=== PATIENT | female | born 1980 | race Caucasian/White ===

== ENCOUNTER → 2019-12-18 16:03 | Outpatient (BNVA) | payer BC, SELFPAY | PROVIDERS: Family Provider Family Medicine; PCP Family Medicine; Visit Provider Family Medicine | DX: R53.82 Chronic fatigue, unspecified (principal); D50.9 Iron deficiency anemia, unspecified | CPT/HCPCS: 80053; 82728; 83540; 84443; 85025 ==

== ENCOUNTER 2020-04-08 08:21 | Emergency (ER) | payer BC, SELFPAY ==
[2020-04-08 08:25] VITALS: BP 137/88; PULSE 88; RESP 20; TEMP 36.9; O2SAT 100; BMI 22.3
--- NOTE | 2020-04-08 08:26 | W.ED.BACK ---
HPI - Back Pain/Injury General: Chief Complaint: Back Pain/Injury Stated Complaint: back pain Time Seen by Provider: 04/08/20 08:24 Source: patient and family Mode of arrival: wheelchair Limitations: no limitations History of Present Illness: HPI Narrative: Patient is a nice 40-year-old female who presents to ED today for evaluation of mid back and neck pain along with upper and lower extremity paresthesias and weakness. Patient tells me she has been noticing upper extremity paresthesias over the past 3 weeks. These seem to be worse when she elevates her extremities (i.e when driving). She tells me she chronically suffers from lower extremity neuropathy but reports over the past few days pain seems to have worsened. She feels her legs are weak and restless. Patient reports she had a similar episode approximately 13 years ago-she was evaluated by neurology for work-up of Guillain Bell?, MS, and other demyelinating disorders. Location: thoracic spine Associated symptoms: Reports difficulty walking; Deny abdominal pain, chills, dysuria, fatigue, fever(s), nausea, syncope, urinary urgency or vomiting Work related injury: No Review of Systems Const: Denies: fever(s), chills, body aches, change in appetite, change in weight, fatigue, malaise or night sweats Eyes: Denies: change in vision, blurry vision, photophobia, floaters or seeing flashes Card: Denies: chest pain, palpitations, irregular heart rhythm, edema, swelling of feet/ankles, lightheadedness, syncope, pre-syncope, dyspnea on exertion, orthopnea or leg pain with exertion Resp: Denies: dyspnea, productive cough, pain on inspiration or chest congestion GI: Denies: abdominal pain, nausea, vomiting, heartburn or diarrhea : Reports: other (no urinary retention ); Denies: flank pain, difficulty voiding, dysuria, urinary frequency, urinary urgency or urinary hesitancy Musc: Reports: neck pain, back pain, extremity pain and muscle weakness; Denies: extremity swelling, joint pain, joint swelling, joint redness or joint warmth Skin/Breast: Denies: rash Neuro: Reports: numbness in extremities, weakness in extremities, sensory changes and difficulty walking; Denies: headache(s), frequent falls, dizziness or Slurred speech present [facility] ED PFSH: Medical History (Updated 04/08/20 @ 10:38 by SAGE Savage) History of hysteroscopy Iron deficiency anemia Surgical History (Updated 12/18/19 @ 15:49 by Cierra Banuelos DO) H/O section H/O tubal ligation History of cholecystectomy Family History Other Chiari malformation Neurofibromatosis Social History Smoking and tobacco status: current every day smoker cigarettes Packs smoked per day: 0.75 Physical Exam Const: COMMON NORMALS: no acute distress, average body habitus, patient oriented x3, no limitations, healthy appearing, alert and well nourished ORIENTATION/CONSCIOUSNESS: Yes oriented to person, Yes oriented to place and Yes oriented to time HENMT: COMMON NORMALS: normocephalic and atraumatic HEAD & SCALP: normocephalic and atraumatic Eye: COMMON NORMALS: Equal, round and reactive pupils present and EOMs intact bilaterally PUPIL: Yes Equal, round and reactive pupils present Neck/C-Spine: CERVICAL SPINE: Yes pain with cervical ROM, Yes Cervical spine tenderness, Yes Paracervical muscle tenderness left and No Paracervical spasm Chest: COMMONS NORMALS: normal inspection of the chest and normal palpation of entire chest wall Resp: COMMON NORMALS: normal respiratory effort and clear to auscultation bilaterally AUSCULTATION: clear to auscultation bilaterally Cardio: COMMON NORMALS: regular rate and regular rhythm RATE: regular rate RHYTHM: regular rhythm : COMMON NORMALS: Yes no CVA tenderness BLADDER/KIDNEY EXAM: Yes no CVA tenderness Back/Pelvis: COMMON NORMALS: no CVA tenderness THORACIC SPINE/UPPER BACK: Yes thoracic spinal tenderness (mid T spine), No paraspinal muscle tenderness and No paraspinal muscle spasm LUMBAR SPINE/LOWER BACK: Yes normal to inspection, No lumbar spinal tenderness and No paraspinal muscle tenderness Extremity: COMMON NORMALS: normal to inspection and full ROM GENERAL: Yes normal exam except as noted Neuro: PETER COMA SCALE: document GCS findings Peter coma scale eye opening: Spontaneous Peter coma scale verbal response: Orientated Peter coma scale motor response: Obey commands [place] coma scale total score: 15 COMMON NORMALS: patient oriented x3, CN's II-XII intact bilaterally, moves all extremities, no focal motor deficits and deep tendon reflexes 2+ bilaterally SENSORIUM/ORIENTATION: Yes alert, Yes oriented to person, Yes oriented to place and Yes oriented to time SENSORY EXAM: Yes other (decreased sensation to bilateral LEs-she states this is fairly chronic ) MOTOR EXAM: 5/5 motor strength present throughout Skin: COMMON NORMALS: no rashes or lesions noted GENERAL SKIN EXAM: no rashes or lesions noted Course Vital Signs: Vital signs: Vital Signs Temperature 98.4 F 04/08/20 08:25 Pulse Rate 57 L 04/08/20 11:12 Respiratory Rate 18 04/08/20 11:12 Blood Pressure 126/79 04/08/20 11:12 Pulse Oximetry 98 04/08/20 11:12 MDM - Back Pain/Injury MDM Narrative: Medical decision making narrative: pts history here is certainly suspicious for some sort of polyneuropathy disorder; her CTs here w/o acute findings; she does have an appointment with Dr. Banuelos on Apr 17 for follow up; I did recommend another neurology consult and information was placed with CM to get her set up with Dr. Sky; I think repeating pts nerve conduction studies might be helpful at this time; she is requesting something to go home with to help with her pain Lab Data: Labs: Lab Results 04/08/20 04/08/20 Range/Units 09:40 09:40 WBC 14.8 H (4.0-10.0) 10^3/ uL RBC 4.93 (4.1-5.3) 10^6/u L Hgb 15.1 (11.5-15.3) g/dL Hct 44.2 (37.0-47.0) % MCV 89.7 (81-99) fL MCH 30.6 (28.0-34.0) pg MCHC 34.2 (30.0-36.0) g/dL RDW 12.3 (12.1-15.1) % Plt Count 252 (130-400) 10^3/c mm MPV 11.1 H (7.4-10.4) fL Neut % (Auto) 73.0 % Lymph % (Auto) 17.8 % [place] % (Auto) 8.4 % Eos % (Auto) 0.3 % Baso % (Auto) 0.2 % Neut # (Auto) 10.81 H (1.8-7.7) 10^3/u L Lymph # (Auto) 2.6 (0.8-4.8) 10^3/u L [place] # (Auto) 1.2 H (0.2-0.9) 10^3/u L Eos # (Auto) 0.1 (0.0-0.8) 10^3/u L Baso # (Auto) 0.0 (0.0-0.1) 10^3/u L Nucleated RBC % (a uto) 0 % Nucleated RBCs # 0.0 /100WBC Sodium 139 (136-145) mmol/L Potassium 3.7 (3.5-5.1) mmol/L Chloride 101 (98-107) mmol/L Carbon Dioxide 25 (22-29) mmol/L Anion Gap 16.7 (5-19) BUN 10 (6-20) mg/dL Creatinine 0.8 (0.5-0.9) mg/dL GFR Calculation 79.9 L (90-130) mL/min Glucose 99 (65-115) mg/dL Calculated Osmolal ity 284 L (285-295) mOsm/k g Calcium 9.9 (8.5-10.5) mg/dL Total Bilirubin 0.4 (0.15-1.2) mg/dL AST 15 (0-32) U/L ALT 10 (0-33) U/L Alkaline Phosphata se 57 (35-105) IU/L C-Reactive Protein 1.3 (0.0-4.9) mg/L Total Protein 7.2 (6.6-8.7) g/dL Albumin 4.6 (3.5-5.2) g/dL Globulin 2.6 (1.3-4.6) g/dL Imaging Data^: CT cervical: Radiologist's impression: [address] [address] [address] Scan Report Signed Patient: Cierra Gilliam Unit #: [id number] : 1980 Age/Sex: 40 / F ADM Date: 04/08/20 Loc: ER Room/Bed: Attending Dr: Ordering Provider/Ordering MD: Ladi Chaudhry Date of Service: 04/08/20 Procedure(s): CT cervical spin wo con* [id number] Accession Number(s): [id number] Report Number: [id number] WS: [id number] CT CERVICAL SPINE TECHNIQUE: Noncontrast CT of the cervical spine with coronal and sagittal reformatted images. CLINICAL INFORMATION: neck pain; paresthesias COMPARISON: None. DLP: 488.[address] scans at [facility] use at least one of these dose optimization techniques: automated exposure control; mA and/or kV adjustment per patient size (includes targeted exams where dose is matched to clinical indication); or iterative reconstruction. FINDINGS: Straightening of the normal cervical lordosis. No acute fractures. No high-grade central canal stenosis. C2-C3: Normal. C3-C4: Normal. C4-C5: Mild right and no significant left foraminal narrowing. Tiny shallow central protrusion. Left foramen is patent. C5-C6: Mild disc osteophytic ridging. Slight effacement of ventral thecal sac. Mild bilateral foraminal narrowing. Mild facet arthropathy. C6-C7: Mild osteophytic ridging with mild right foraminal narrowing. Spinal canal is patent. C7-T1: Mild right bony foraminal narrowing. Spinal canal and foramen are patent. Visualized posterior nasopharynx: Normal. Prevertebral soft tissues: Normal. CT/CT cervical spin wo con* [id number] IMPRESSION: 1. Straightening of the normal cervical lordosis. No high-grade spinal canal or foraminal narrowing. 2. Tiny shallow central protrusion C4-5 with mild central canal stenosis. Mild right foraminal narrowing. 3. Otherwise mild bony foraminal narrowing as described above. Notified SAGE Savage at 04/08/2020 9:21 AM. Dictated By: Smith Parra MD Signed By: Smith Parra MD Signed Date/Time: 04/08/20920 DD/ 3 CT thoracic: Radiologist's impression: [address] [address] [address] Scan Report Signed Patient: Cierra Gilliam Unit #: [id number] : 1980 Age/Sex: 40 / F ADM Date: 04/08/20 Loc: ER Room/Bed: Attending Dr: Ordering Provider/Ordering MD: Ladi Chaudhry Date of Service: 04/08/20 Procedure(s): CT thoracic spin wo con* [id number] Accession Number(s): [id number] Report Number: [id number] WS: [id number] CT THORACIC SPINE TECHNIQUE: Noncontrast CT of the thoracic spine with coronal and sagittal reformatted images. CLINICAL INFORMATION: mid back pain; paresthesias COMPARISON: None. DLP: 1067.[address] scans at [facility] use at least one of these dose optimization techniques: automated exposure control; mA and/or kV adjustment per patient size (includes targeted exams where dose is matched to clinical indication); or iterative reconstruction. FINDINGS: Mild thoracic curve. Disc space heights and vertebral body heights well-preserved. No acute fractures. No acute compression fractures. Mild central canal stenosis T10-T11 and T11-T12 due to facet arthropathy ligament flavum hypertrophy. Partially visualized left proximal foraminal protrusion T12-L1 with moderate left foraminal narrowing. Otherwise mild bony foraminal narrowing at right T4-5, right T6-7, right T7-8, right T8- 9, bilateral T9-T10, bilateral T10-11 right T11-12. Moderate facet arthropathy in the lower thoracic spine. Mild chronic emphysematous change. Subsegmental atelectasis left lower lobe. Calcified hilar nodes. Cholecystectomy clips. CT/CT thoracic spin wo con* [id number] IMPRESSION: 1. Mild thoracic curve. No acute compression fractures. 2. Mild spinal canal narrowing lower thoracic spine T9-T10 and T10-11 3. Small left foraminal protrusion T12-L1 with moderate left foraminal narrowing. 4. Moderate facet arthropathy lower thoracic spine. 5. Otherwise mild bony foraminal narrowing described above. 6. Recommend further evaluation of the above findings with MRI. Notified SAGE Savage at 04/08/2020 9:28 AM. Dictated By: Smith Parra MD Signed By: Smith Parra MD Signed Date/Time: 04/08/20928 DD/ 0 CT lumbar: Radiologist's impression: [facility] [address] [place] [address] CT Scan Report Signed Patient: Cierra Gilliam Unit #: [id number] : 1980 Age/Sex: 40 / F ADM Date: 04/08/20 Loc: ER Room/Bed: Attending Dr: Ordering Provider/Ordering MD: Ladi Chaudhry Date of Service: 04/08/20 Procedure(s): CT lumbar spine wo con* [id number] Accession Number(s): [id number] Report Number: [id number] WS: [id number] CT LUMBAR SPINE TECHNIQUE: Noncontrast CT of the lumbar spine with coronal and sagittal reformatted images. CLINICAL INFORMATION: LE neuropathy; difficulty with ambulation COMPARISON: None. DLP: 1219.[address] scans at [facility] use at least one of these dose optimization techniques: automated exposure control; mA and/or kV adjustment per patient size (includes targeted exams where dose is matched to clinical indication); or iterative reconstruction. FINDINGS: Mild lumbar curve. No acute compression. No high-grade central canal stenosis. T12-L1: Left foraminal protrusion impinges the exiting left T12 nerve root. Severe left foraminal narrowing with moderate facet arthropathy. Mild central canal stenosis. Right foramen is patent. L1-L2: Normal. L2-L3: Normal L3-L4: Mild annular bulging. Mild facet arthropathy. Spinal canal and foramen are patent. L4-L5: Mild annular bulging with osteophytic ridging. Tiny central protrusion. Mild central canal stenosis and impingement traversing L5 nerve roots bilaterally. Mild bilateral foraminal narrowing. Mild facet arthropathy. L5-S1: Small right pericentral protrusion slightly impinges the traversing right S1 nerve root. Spinal canal is patent. Mild bilateral foraminal narrowing. Mild facet arthropathy. Visualized pelvic bony structures: Normal. Paravertebral soft tissues: Normal. CT/CT lumbar spine wo con* [id number] IMPRESSION: 1. Mild lumbar curve. No acute compression. No high-grade central canal stenosis. 2. Left proximal foraminal protrusion T12-L1 with severe left foraminal narrowing 3. Mild central canal stenosis L4-5. 4. Tiny shallow right pericentral protrusion L5-S1 encroaches on the right S1 nerve root. 5. Otherwise mild foraminal narrowing described above. Notified SAGE Savage at 04/08/2020 9:35 AM. Dictated By: Smith Parra MD Signed By: Smith Parra MD Signed Date/Time: 04/08/20934 DD/ 8 Discharge Plan Discharge Patient Disposition: Home Clinical Impression: Polyneuropathy Condition: Stable Prescriptions: New gabapentin 300 mg capsule 300 mg PO TID 30 Days Qty: 90 RF: 0 hydrocodone-acetaminophen 5-325 mg tablet 1 tab PO Q6H PRN (Reason: pain) Qty: 10 RF: 0 Medrol (Julien) 4 mg tablets,dose pack See Rx Instructions .ROUTE .COMPLEX Qty: 21 RF: 0 No Action baclofen 10 mg tablet 10 mg PO TID PRN (Reason: muscle spasm) Qty: 15 RF: 0 naproxen See Rx Instructions .ROUTE .COMPLEX RF: 0 Discharge Orders: Discharge Order (Routine); Ordered 04/08/20 Ordered By: Ladi Chaudhry Referrals: Cierra Banuelos DO [Primary Care Provider] - Activity Restrictions/Additional Instructions: As discussed please follow-up with Dr. Banuelos at your scheduled appointment on April 17. I have placed you information with case management to get you an appointment with Dr. Sky for further evaluation as well. Stand Alone Forms: Work/School Release Discharge Date/Time: 04/08/20 11:13 Coding Level of Care Code ED Site Controller for Chg Fwd Exam Comprehensive
--- NOTE | 2020-04-08 08:43 | CT_ITS ---
WS: [id number] CT LUMBAR SPINE TECHNIQUE: Noncontrast CT of the lumbar spine with coronal and sagittal reformatted images. CLINICAL INFORMATION: LE neuropathy; difficulty with ambulation COMPARISON: None. DLP: 1219.[address] scans at [facility] use at least one of these dose optimization techniques: automat ed exposure control; mA and/or kV adjustment per patient size (includes targeted exams where dose is matched to clinical indication); or iterative reconstruction. FINDINGS: Mild lumbar curve. No acute compression. No high-grade central canal stenosis. T12-L1: Left foraminal protrusion impinges the exiting left T12 nerve root. Severe left foraminal tejal rowing with moderate facet arthropathy. Mild central canal stenosis. Right foramen is patent. L1-L2: Normal. L2-L3: Normal L3-L4: Mild annular bulging. Mild facet arthropathy. Spinal canal and foramen are patent. L4-L5: Mild annular bulging with osteophytic ridging. Tiny central protrusion. Mild central canal mathieu nosis and impingement traversing L5 nerve roots bilaterally. Mild bilateral foraminal narrowing. Mild facet arthropathy. L5-S1: Small right pericentral protrusion slightly impinges the traversing right S1 nerve root. Spina l canal is patent. Mild bilateral foraminal narrowing. Mild facet arthropathy. Visualized pelvic bony structures: Normal. Paravertebral soft tissues: Normal. CT/CT lumbar spine wo con* [id number] IMPRESSION: 1. Mild lumbar curve. No acute compression. No high-grade central canal stenos is. 2. Left proximal foraminal protrusion T12-L1 with severe left foraminal narrow ing 3. Mild central canal stenosis L4-5. 4. Tiny shallow right pericentral protrusion L5-S1 encroaches on the right S1 nerve root. 5. Otherwise mild foraminal narrowing described above. Notified SAGE Savage at 04/08/2020 9:35 AM.
--- NOTE | 2020-04-08 08:43 | CT_ITS ---
WS: [id number] CT CERVICAL SPINE TECHNIQUE: Noncontrast CT of the cervical spine with coronal and sagittal reformatted images. CLINICAL INFORMATION: neck pain; paresthesias COMPARISON: None. DLP: 488.[address] scans at [facility] use at least one of these dose optimization techniques: automat ed exposure control; mA and/or kV adjustment per patient size (includes targeted exams where dose is matched to clinical indication); or iterative reconstruction. FINDINGS: Straightening of the normal cervical lordosis. No acute fractures. No high-grade central ca nal stenosis. C2-C3: Normal. C3-C4: Normal. C4-C5: Mild right and no significant left foraminal narrowing. Tiny shallow central protrusion. Left foramen is patent. C5-C6: Mild disc osteophytic ridging. Slight effacement of ventral thecal sac. Mild bilateral foramin al narrowing. Mild facet arthropathy. C6-C7: Mild osteophytic ridging with mild right foraminal narrowing. Spinal canal is patent. C7-T1: Mild right bony foraminal narrowing. Spinal canal and foramen are patent. Visualized posterior nasopharynx: Normal. Prevertebral soft tissues: Normal. CT/CT cervical spin wo con* [id number] IMPRESSION: 1. Straightening of the normal cervical lordosis. No high-grade spinal canal o r foraminal narrowing. 2. Tiny shallow central protrusion C4-5 with mild central canal stenosis. Mild right foraminal narrowing. 3. Otherwise mild bony foraminal narrowing as described above. Notified SAGE Savage at 04/08/2020 9:21 AM.
--- NOTE | 2020-04-08 08:43 | CT_ITS ---
WS: [id number] CT THORACIC SPINE TECHNIQUE: Noncontrast CT of the thoracic spine with coronal and sagittal reformatted images. CLINICAL INFORMATION: mid back pain; paresthesias COMPARISON: None. DLP: 1067.[address] scans at [facility] use at least one of these dose optimization techniques: automat ed exposure control; mA and/or kV adjustment per patient size (includes targeted exams where dose is matched to clinical indication); or iterative reconstruction. FINDINGS: Mild thoracic curve. Disc space heights and vertebral body heights well-preserved. No acute fractures . No acute compression fractures. Mild central canal stenosis T10-T11 and T11-T12 due to facet arthropathy ligament flavum hypertrophy. Partially visualized left proximal foraminal protrusion T12-L1 with moderate left foraminal narrowing . Otherwise mild bony foraminal narrowing at right T4-5, right T6-7, right T7-8, right T8-9, bilatera l T9-T10, bilateral T10-11 right T11-12. Moderate facet arthropathy in the lower thoracic spine. Mild chronic emphysematous change. Subsegmental atelectasis left lower lobe. Calcified hilar nodes. C holecystectomy clips. CT/CT thoracic spin wo con* [id number] IMPRESSION: 1. Mild thoracic curve. No acute compression fractures. 2. Mild spinal canal narrowing lower thoracic spine T9-T10 and T10-11 3. Small left foraminal protrusion T12-L1 with moderate left foraminal narrowi ng. 4. Moderate facet arthropathy lower thoracic spine. 5. Otherwise mild bony foraminal narrowing described above. 6. Recommend further evaluation of the above findings with MRI. Notified SAGE Savage at 04/08/2020 9:28 AM.
[2020-04-08 09:50] LABS: Basophils % 0.2 %; Eosinophils # 0.1 10^3/uL (0.0-0.8); Eosinophils % 0.3 %; Hematocrit 44.2 % (37.0-47.0); Hemoglobin 15.1 g/dL (11.5-15.3); Lymphocytes # 2.6 10^3/uL (0.8-4.8); Lymphocytes % 17.8 %; Mean Corpuscular HGB Conc 34.2 g/dL (30.0-36.0); Mean Corpuscular Hemoglobin 30.6 pg (28.0-34.0); Mean Corpuscular Volume 89.7 fL (81-99); Mean Platelet Volume 11.1 fL (7.4-10.4); Monocytes # 1.2 10^3/uL (0.2-0.9); Monocytes % 8.4 %; Neutrophils # 10.81 10^3/uL (1.8-7.7); Nucleated Red Blood Cells % 0 %; Platelet Count 252 10^3/cmm (130-400); Red Blood Count 4.93 10^6/uL (4.1-5.3); Red Cell Distribution Width 12.3 % (12.1-15.1); White Blood Count 14.8 10^3/uL (4.0-10.0)
[2020-04-08 09:51] VITALS: BP 127/80; PULSE 53; RESP 18; O2SAT 99
[2020-04-08 10:14] LABS: Alanine Aminotransferase 10 U/L (0-33); Albumin Level 4.6 g/dL (3.5-5.2); Alkaline Phosphatase 57 IU/L (35-105); Anion Gap 16.7 (5-19); Aspartate Amino Transferase 15 U/L (0-32); Blood Urea Nitrogen 10 mg/dL (6-20); Calcium 9.9 mg/dL (8.5-10.5); Carbon Dioxide 25 mmol/L (22-29); Chloride 101 mmol/L (98-107); Globulin 2.6 g/dL (1.3-4.6); Glomerular Filtration Rate 79.9 mL/min (90-130); Glucose 99 mg/dL (65-115); Osmolality Calculated 284 mOsm/kg (285-295); Potassium 3.7 mmol/L (3.5-5.1); Sodium 139 mmol/L (136-145); Total Bilirubin 0.4 mg/dL (0.15-1.2); Total Protein 7.2 g/dL (6.6-8.7)
[2020-04-08 10:26] VITALS: RESP 18
[2020-04-08] MEDS: orphenadrine 30 mg/mL Inj 2 mL 60 MG IM (10:26)
[2020-04-08] MEDS: morphine 4 mg/mL SDV 1 mL IVP (10:26)
[2020-04-08] MEDS: ondansetron 2 mg/ML SDV 2 mL 4 MG IVP (10:26)
[2020-04-08 10:30] LABS: C Reactive Protein 1.3 mg/L (0.0-4.9)
[2020-04-08 11:12] VITALS: BP 126/79; PULSE 57; RESP 18; O2SAT 98
--- NOTE | 2020-04-09 08:57 | DCPLANNER ---
manager general was asked to schedule a follow up appointment for patient with Dr. Sky. manager general called the office of Dr. Sky, gave clinic patients information. manager general was told that patients information would be printed and reviewed. Clinic will call patient with appointment information.
== END 2020-04-08 11:13 | disposition home or self-care (01) ==
PROVIDERS: Emergency Provider Physician Assistant; Family Provider Family Medicine; PCP Family Medicine
DX: G62.9 Polyneuropathy, unspecified (principal); F17.210 Nicotine dependence, cigarettes, uncomplicated
CPT/HCPCS: 12345; 72125; 72128; 72131; 80053; 85025; 86140; 96372; 96374; 96375; 99282; 99283; J2270; J2360; J2405

== ENCOUNTER → 2020-04-15 07:55 | Outpatient (BNVA) | payer BC, SELFPAY | PROVIDERS: Family Provider Family Medicine; PCP Family Medicine; Visit Provider Licensed Practical Nurse | DX: M51.34 Other intervertebral disc degeneration, thoracic region (principal); F17.210 Nicotine dependence, cigarettes, uncomplicated; M51.26 Other intervertebral disc displacement, lumbar region; G62.9 Polyneuropathy, unspecified | CPT/HCPCS: 99214 ==

== ENCOUNTER 2020-04-23 12:11 | Outpatient (CLI) | payer BC, SELFPAY ==
--- NOTE | 2020-04-23 12:21 | MR_ITS ---
WS: [id number] MRI CERVICAL SPINE HISTORY: CERVICAL DISC DISORDER COMPARISON: CT cervical spine 04/08/2020 Normal cervical alignment with no compression fracture or significant disc space narrowing. Mild inferior displacement of cerebellar tonsils by 5 mm. Craniocervical junction, C1 and C2 relationship, odontoid process and soft tissues are normal. C2-C3: Normal. C3-C4: Normal. C4-C5: Mild disc bulging. C5-C6: Very shallow central protrusion. No stenosis. C6-C7: Shallow central protrusion with no stenosis. C7-T1: Normal. Paraspinal soft tissue are normal. MR/MR cervical spin wo con* [id number] IMPRESSION: 1. Shallow central disc protrusions at C5-6 and C6-7. No stenosis. 2. Mild ectopia cerebellar tonsils.
--- NOTE | 2020-04-23 12:21 | MR_ITS ---
WS: [id number] MRI THORACIC SPINE without contrast HISTORY: THORACIC REGION DEGENERATION OF INTERVERTEBRAL DISC COMPARISON: CT 04/08/2020 TECHNIQUE: Multiplanar sequences are performed in sagittal and axial planes. Normal posterior thoracic alignment. No marrow edema or fracture. Signal within the cord is normal. N o cord atrophy or enlargement. T1-2: Normal. T2-3: Normal. T3-4: Normal. T4-5: Mild bilateral facet joint arthropathy and mild foraminal narrowing. T5-6: Mild facet joint arthropathy. T6-7: Normal. T7-8: Normal. T8-9: Mild bilateral facet joint arthritis. Mild RIGHT foraminal stenosis. T9-10: Facet joint arthritis. Mild bilateral foraminal stenosis. T10-11: Facet joint arthritis and ligamentum flavum hypertrophy encroaching into the posterior later al thecal sac. Very mild central and foraminal stenosis. T11-12: Moderate asymmetric facet joint arthritis, greatest on the RIGHT. Encroachment into the RIGH T lateral thecal sac. Very minimal narrowing of the central canal and foramen. T12-L1: Mild LEFT foraminal narrowing due to facet disease and a small LEFT paracentral disc osteophy te complex. Moderate LEFT subarticular recess stenosis. MR/MR thoracic spin wo con* [id number] IMPRESSION: 1. Moderate LEFT subarticular recess stenosis at T12-L1 due to disc osteophyte complex. 2. Multilevel mild facet joint arthritis and foraminal narrowing otherwise. No severe high-grade stenosis. 3. Normal signal in the cord.
--- NOTE | 2020-04-23 12:22 | MR_ITS ---
WS: [id number] MRI BRAIN WITH AND WITHOUT CONTRAST HISTORY: GAIT INSTABILITY, HEADACHE COMPARISON: 08/27/2006 TECHNIQUE: Multiplanar imaging performed through the brain with Prohance 14 ml's IV. No acute infarcts are seen. Duarte-white matter differentiation is well preserved. There are a few scat tered T2 and FLAIR signal hyperintensities which are nonspecific. No prior infarct. No susceptibility artifacts or prior lacunar infarcts. Ventricles and extra-axial spaces are normal. Clivus and pituitary gland are normal. Inferior displacement of the cerebellar tonsils by 6 mm. Consistent with a mild Chiari malformation. Inferior descent of the cerebellar tonsils is not quite as significant on today's examination as 2006 . Postcontrast images are negative for masses or vascular malformations. Dural venous sinuses are normal. Paranasal sinuses: Well aerated with no significant disease. Mastoid air cells: Normal. Calvarium and scalp: Normal. MR/MR head wo/w con [id number] IMPRESSION: 1. No acute infarct. 2. No hydrocephalus. 3. Mild Chiari I malformation.
--- NOTE | 2020-04-23 13:17 | XR_ITS ---
WS: [id number] LATERAL LUMBAR SPINE: 3 view. Lateral radiographs are performed in upright neutral, flexion and extension to the patient's toleranc e. HISTORY: low back pain COMPARISON: None available. Mild straightening of the normal lumbar lordosis. During flexion and extension there is no instabilit y. No fractures. Prior cholecystectomy. XR/XR lumbar spine f/e only [id number] IMPRESSION: No lumbar spine instability.
--- NOTE | 2020-04-23 13:17 | XR_ITS ---
WS: [id number] LATERAL CERVICAL SPINE: 3 view. Lateral radiographs are performed in upright neutral, flexion and extension to the patient's toleranc e. HISTORY: Neck pain COMPARISON: None available. Straightening of the normal cervical lordosis with slight reversal. Disc spaces and vertebral body he ights are normal. During flexion C4 anterolisthesis by less than 2 mm. During extension less than 2 m m retrolisthesis of C4. XR/XR cervical spine fl/ex [id number] IMPRESSION: There is very minimal instability of C4 during flexion and extension.
== END 2020-04-23 12:12 | disposition home or self-care (01) ==
LOC: RADSHAW 12:15 → RADWPI 13:34
PROVIDERS: Family Provider Family Medicine; PCP Family Medicine; Visit Provider Licensed Practical Nurse
DX: R26.89 Other abnormalities of gait and mobility (principal); R51 Headache; M53.2X2 Spinal instabilities, cervical region; G93.5 Compression of brain; M51.34 Other intervertebral disc degeneration, thoracic region; M48.05 Spinal stenosis, thoracolumbar region; M50.90 Cervical disc disorder, unspecified, unspecified cervical region; M50.223 Other cervical disc displacement at C6-C7 level
CPT/HCPCS: 70553; 72040; 72120; 72141; 72146; A9579

== ENCOUNTER 2020-05-01 07:47 | Outpatient (CLI) | payer BC, SELFPAY ==
--- NOTE | 2020-05-01 09:30 | MR_ITS ---
WS: [id number] MRI LUMBAR SPINE NONCONTRAST HISTORY: M51.26 Other intervertebral disc displacement, lumbar region COMPARISON: Lumbar spine CT 04/08/2020. TECHNIQUE: Sagittal and axial multisequence imaging is submitted. Mild straightening of the normal lumbar alignment. Disc spaces are preserved. No marrow edema or fracture. Conus terminates normally at L1. T12-L1: Moderate sized LEFT paracentral and subarticular recess disc protrusion with narrowing of the LEFT foramen. The T12 nerve root is being impinged upon. At least moderate LEFT foraminal stenosis. L1-L2: Normal. L2-L3: Normal. L3-L4: Mild facet and ligamentum flavum arthritis. Very mild annular disc bulging. Mild effacement of fat. There is moderate bilateral foraminal stenosis, RIGHT greater than LEFT. L4-L5: Diffuse annular disc bulging with facet and ligamentum flavum hypertrophy. Encroachment into t he subarticular recesses and foramen. RIGHT foraminal disc protrusion with annular fissure. Moderate bilateral foraminal stenosis. L5-S1: Mild annular disc bulging and facet arthritis. Moderate bilateral foraminal stenosis. MR/MR lumbar spine wo con* [id number] IMPRESSION: 1. Moderate LEFT T12-L1 foraminal disc protrusion with encroachment upon the T 12 nerve root. Similar to the CT. 2. Moderate bilateral foraminal stenosis from L3-4 through L5-S1 due to combin ation of facet disease and disc disease. 3. Small RIGHT foraminal disc protrusion with annular fissure at L4-5 contribu ting to the moderate foraminal stenosis.
== END 2020-05-01 07:48 | disposition home or self-care (01) ==
LOC: RADSHAW 07:51
PROVIDERS: PCP Family Medicine; Visit Provider Licensed Practical Nurse
DX: M51.26 Other intervertebral disc displacement, lumbar region (principal); M48.061 Spinal stenosis, lumbar region without neurogenic claudication; M51.36 Other intervertebral disc degeneration, lumbar region
CPT/HCPCS: 72148

== ENCOUNTER → 2020-05-02 14:53 | Outpatient (BNVA) | payer BC, SELFPAY | PROVIDERS: PCP Family Medicine; Visit Provider Specialist | DX: G62.9 Polyneuropathy, unspecified (principal); F44.9 Dissociative and conversion disorder, unspecified; G57.30 Lesion of lateral popliteal nerve, unspecified lower limb; R26.89 Other abnormalities of gait and mobility; F17.210 Nicotine dependence, cigarettes, uncomplicated | CPT/HCPCS: 95909; 99215 ==

== ENCOUNTER → 2020-05-05 14:59 | Outpatient (BNVA) | payer BC, SELFPAY | PROVIDERS: PCP Family Medicine; Visit Provider Licensed Practical Nurse | DX: R26.81 Unsteadiness on feet (principal); M50.90 Cervical disc disorder, unspecified, unspecified cervical region; M51.34 Other intervertebral disc degeneration, thoracic region; M51.26 Other intervertebral disc displacement, lumbar region; R26.89 Other abnormalities of gait and mobility; F44.9 Dissociative and conversion disorder, unspecified; G62.9 Polyneuropathy, unspecified; F17.210 Nicotine dependence, cigarettes, uncomplicated | CPT/HCPCS: 99213 ==

== ENCOUNTER → 2020-05-15 13:56 | Outpatient (BNVA) | payer BC, SELFPAY | PROVIDERS: PCP Family Medicine; Visit Provider Licensed Practical Nurse | DX: M51.26 Other intervertebral disc displacement, lumbar region (principal); M51.34 Other intervertebral disc degeneration, thoracic region; M50.90 Cervical disc disorder, unspecified, unspecified cervical region; R26.81 Unsteadiness on feet; F17.210 Nicotine dependence, cigarettes, uncomplicated | CPT/HCPCS: 99214 ==

== ENCOUNTER 2020-09-01 17:42 | Emergency (ER) | payer BC, SELFPAY ==
[2020-09-01 17:44] VITALS: BP 156/103; PULSE 62; RESP 18; TEMP 36.3; O2SAT 100; BMI 22.4
--- NOTE | 2020-09-01 18:07 | W.ED.HA ---
HPI - Headache General: Chief Complaint: Headache Stated Complaint: MIGRAINE X 3 DAYS Time Seen by Provider: 09/01/20 17:47 Source: patient Mode of arrival: ambulatory Limitations: no limitations History of Present Illness: HPI Narrative: 40-year-old female patient presents to the emergency department with migraine headache x3 days. She reports has maxed out dose of Maxalt past 2 days; continues to take Topamax as recommended by her neurologist. She reports migraine she is experiencing today is similar to that in the past with exception has lasted longer. She reports her pain is global, increased intensity, has experienced 1 episode of vomiting, today and continued nausea. She reports decreased intake of fluids, decreased appetite, denies fever chills or body aches. States known triggers are weather changes and certain foods that contain MSG. She states has neurologist at [facility] who is working her up for possible MS - previous evaluation by DR Sky with diagnosis of conversion disorder. Reports diagnosed with MHA during childhood. MD elicited complaint: headache and migraine Pertinent past history: migraines Onset (ago): day(s) (2-3) Onset description: gradually Location: generalized Severity: moderate Quality & Timing: aching, throbbing, dull and similar to previous headaches Exacerbating factors: light and noise Relieving factors: rest, dark room, sleep and massage Context: occurred at rest Associated symptoms: Reports nausea, sound sensitivity and vomiting (x1); Deny chest pain, diaphoresis, fever(s), lightheadedness, malaise or rash Treatments prior to arrival: prescription analgesic and migraine medication Review of Systems General: Reports: 10 or more systems reviewed and unremarkable except in HPI and below Const: Denies: fever(s), chills, body aches, fatigue, malaise or diaphoresis Eyes: Reports: photophobia; Denies: change in vision, blurry vision, blind spots, eye discomfort, eye discharge, eye redness or seeing flashes ENMT: Denies: throat pain, dental pain or disequilibrium Card: Denies: chest pain, palpitations, irregular heart rhythm, lightheadedness, dyspnea on exertion or orthopnea Resp: Denies: dyspnea, productive cough, non-productive cough, wheezing or chest congestion GI: Reports: nausea and vomiting (x1); Denies: abdominal pain, diarrhea, constipation, fecal incontinence or change in bowel habits : Denies: difficulty voiding or dysuria Musc: Reports: neck pain (chronic - not changed - not chnged from baseline); Denies: back pain, muscle cramps or muscle weakness Skin/Breast: Denies: rash or pruritus Neuro: Denies: headache(s), weakness in extremities or behavioral changes Psych: Denies: anxiety, depression or irritability Fernie/Lymph: Denies: easy bruising PFSH ED PFSH: Medical History (Updated 09/01/20 @ 18:36 by RINA Neumann) Cervical disc disease Conversion disorder Displacement of lumbar intervertebral disc Functional gait abnormality Gait instability History of hysteroscopy Iron deficiency anemia Peroneal neuropathy Thoracic degenerative disc disease Surgical History H/O section H/O tubal ligation History of cholecystectomy Family History Other Chiari malformation Neurofibromatosis Social History Smoking and tobacco status: current every day smoker cigarettes Packs smoked per day: 0.75 Alcohol intake: never Household members: spouse and children Marital status: Current occupational status: employed Current occupation: currently [employer] History of recent travel: No Physical Exam Const: COMMON NORMALS: no acute distress, patient oriented x3, healthy appearing, alert and well nourished EXAM LIMITATIONS: no altered mental status, no behavioral limitations and no language barrier GENERAL APPEARANCE: cooperative, comfortable, well kempt, well developed and well hydrated; not anxious, not combative and not ill appearing NUTRITIONAL APPEARANCE: thin ORIENTATION/CONSCIOUSNESS: Yes awake, Yes oriented to person, Yes oriented to place and Yes oriented to time; not confused and not patient obtunded HENMT: COMMON NORMALS: normocephalic, atraumatic, EAC's normal, TM's normal bilaterally, Normal external nose present and moist oral mucous membranes HEAD & SCALP: normal to inspection, normocephalic, atraumatic and scalp tenderness (reports scalp massage helps pain upon exam) FACE & SINUS: normal facial exam and face symmetric; no sinus tenderness, no Flattened naso-labial fold present, no erythema and no edema NOSE: Normal external nose present and Normal nares present EXTERNAL AUDITORY CANAL: EAC's normal TYMPANIC MEMBRANE: TM's normal bilaterally MOUTH: Normal oral and palatal mucosa present, lip normal and tongue normal THROAT: posterior oropharynx normal and uvula midline Eye: COMMON NORMALS: Equal, round and reactive pupils present and EOMs intact bilaterally GENERAL EYE: appearance normal, both eyes and all related structures ALIGNMENT: Yes alignment normal EYELID: eyelids normal SCLERA: sclerae normal PUPIL: Yes Equal, round and reactive pupils present Neck/C-Spine: COMMON NORMALS: full ROM, no lymphadenopathy and supple GENERAL: Yes normal visual inspection, Yes trachea midline, No lymphadenopathy and No tender CERVICAL SPINE: Yes cervical ROM normal, No pain with cervical ROM, No Cervical spine tenderness, No Paracervical muscle tenderness and No Trapezius muscle tenderness Lymph: LYMPHATIC: no lymphadenopathy noted Chest: COMMONS NORMALS: normal inspection of the chest and normal palpation of entire chest wall Resp: COMMON NORMALS: normal respiratory effort, No retractions, No use of accessory muscles and clear to auscultation bilaterally EFFORT & INSPECTION: Yes able to speak in complete sentences, No labored, No retractions and No audible wheezes AUSCULTATION: clear to auscultation bilaterally Cardio: COMMON NORMALS: regular rate, regular rhythm, S1 normal heart sound present, S2 normal heart sound present and Peripheral pulses 2+ throughout RATE: regular rate RHYTHM: regular rhythm HEART SOUNDS: S1 normal heart sound present and S2 normal heart sound present PERIPHERAL PULSES: Peripheral pulses 2+ throughout GI: COMMON NORMALS: Normal to inspection, nondistended, normoactive bowel sounds present, Soft to palpation and non-tender INSPECTION: Yes normal to inspection and No central obesity PALPATION: Yes Soft to palpation, No Firmness to palpation present (GI) and No Tenderness to palpation present (GI) : COMMON NORMALS: Yes no CVA tenderness BLADDER/KIDNEY EXAM: Yes no CVA tenderness Back/Pelvis: COMMON NORMALS: no CVA tenderness, thoracic and lumbar spine normal to inspection, no thoracic nor lumbar tenderness and thoraco-lumbar ROM normal Extremity: COMMON NORMALS: normal to inspection, full ROM, capillary refill normal and no pedal edema GENERAL: Yes normal exam except as noted Neuro: PETER COMA SCALE: document GCS findings [place] coma scale eye opening: Spontaneous [place] coma scale verbal response: Orientated Peter coma scale motor response: Obey commands [place] coma scale total score: 15 COMMON NORMALS: patient oriented x3 and no focal motor deficits SENSORIUM/ORIENTATION: Yes alert, Yes oriented to person, Yes oriented to place and Yes oriented to time SPEECH: speech normal GAIT: Yes Normal gait present MOTOR EXAM: 5/5 motor strength present throughout Psych: COMMON NORMALS: mental status grossly normal, Normal thought process present, cooperative, normal affect, speech normal, activity/motor behavior normal, denies hallucinations, denies homicidal ideation and denies suicidal ideation APPEARANCE: Yes grossly normal and Yes well kempt ATTITUDE: Yes calm ACTIVITY/MOTOR BEHAVIOR: Yes appropriate eye contact SPEECH: Yes normal speech THOUGHT PROCESS: Normal thought process present MEMORY/COGNITION: Yes memory grossly intact INSIGHT: Good insight present (Psych) JUDGEMENT: Good judgement present (Psych) Skin: COMMON NORMALS: no rashes or lesions noted and turgor normal GENERAL SKIN EXAM: no rashes or lesions noted and turgor normal Course Vital Signs: Vital signs: Vital Signs Temperature 97.3 F L 09/01/20 17:44 Pulse Rate 62 09/01/20 17:44 Respiratory Rate 18 09/01/20 17:44 Blood Pressure 156/103 09/01/20 17:44 Pulse Oximetry 100 09/01/20 17:44 MDM - Headache MDM Narrative: Medical decision making narrative: 40-year-old female patient presents to the emergency department with migraine headache x3 days. She experienced 1 episode of vomiting prior to arrival to the ED. Normal saline along with migraine headache cocktail that included Toradol, Reglan, dexamethasone, and Benadryl administered IV. Migraine headache improved and she was ready to go home. Blood pressure at time of discharge 124/64. Oxygen saturation 100%. She requested to go home and sleep. She states has appointment with her primary care provider on Tuesday. Advised to return to the emergency department if she develops worst headache of her life or return of migraine that is intractable. She remained neurologically at baseline. [place] SAH score - 0. Differential Diagnosis: Differential diagnosis headache: Likely migraine, tension headache, subarachnoid hemorrhage, headache, meningitis and sinusitis Discharge Plan Discharge Patient Disposition: Home Clinical Impression: Migraine headache Qualifiers: Migraine type: with aura Status migrainosus presence: with status migrainosus Intractability: intractable Qualified Code(s): G43.111 - Migraine with aura, intractable, with status migrainosus Condition: Stable Prescriptions: No Action baclofen 10 mg tablet 10 mg PO TID PRN (Reason: muscle spasm) Qty: 15 RF: 0 gabapentin 300 mg capsule 300 mg PO BEDTIME RF: 0 rizatriptan 10 mg tablet 10 mg PO PRN RF: 0 topiramate 25 mg tablet 25 mg PO BID@ RF: 0 Tylenol Extra Strength 500 mg Tablet 1,000 mg PO PRN RF: 0 oxybutynin chloride 5 mg tablet 5 mg PO TID PRN (Reason: Bladder Spasms) RF: 0 Excedrin Migraine 250-250-65 mg Tablet 2 tab PO PRN RF: 0 naproxen 500 mg Tablet 500 - 1,000 mg PO PRN RF: 0 Discharge Orders: Discharge ED (Routine); Ordered 09/01/20 Ordered By: Helena East Referrals: Estephania Valladares DO [Primary Care Provider] - Discharge Diet: Usual diet Discharge Activity: Limit activity as instructed Patient Instructions: Migraine Headache (ED) Activity Restrictions/Additional Instructions: rest at home today and tomorrow limit activity until better Continue follow up with neurologist at [facility] return to the ED for the worst headache of your life or if concerning symptoms occur Coding Level of Care Code ED Accounts Receivable Specialist for Kathi Fwd Exam Comprehensive
[2020-09-01] MEDS: metoclopramide 5 mg/mL SDV 2 mL 10 MG IVP (18:27)
[2020-09-01] MEDS: diphenhydrAMINE 50 mg/mL SDV 1mL 25 MG IVP (18:27)
[2020-09-01] MEDS: ketorolac 30 mg/mL INJ IVP (18:27)
[2020-09-01] MEDS: dexamethasone 4 mg/mL INJ 8 MG IVP (18:27)
[2020-09-01] MEDS: sodium chloride 0.9% 500 ML 999 ML IV (18:27)
== END 2020-09-01 19:35 | disposition home or self-care (01) ==
PROVIDERS: Emergency Provider Nurse Practitioner Family; PCP Family Medicine
DX: G43.111 Migraine with aura, intractable, with status migrainosus (principal); F17.210 Nicotine dependence, cigarettes, uncomplicated
CPT/HCPCS: 12345; 96374; 96375; 99282; 99283; J1100; J1200; J1885; J2765; J7040

== ENCOUNTER 2021-12-16 12:34 | Emergency (ER) | payer BC, SELFPAY ==
[2021-12-16 12:37] VITALS: BP 150/101; PULSE 71; RESP 16; TEMP 36.6; O2SAT 100
--- NOTE | 2021-12-16 13:41 | CT_ITS ---
WS: [id number] CT HEAD TECHNIQUE: Noncontrast CT of the head obtained from the skullbase to the vertex. CLINICAL INFORMATION: headache, reported hx brain mass COMPARISON: MRI April 23, 2020 DLP: 776.[address] scans at [facility] use at least one of these dose optimization techniques: automated e xposure control; mA and/or kV adjustment per patient size (includes targeted exams where dose is matc hed to clinical indication); or iterative reconstruction. FINDINGS: No evidence of intracranial hemorrhage or mass effect. Ventricular system and basal cisterns are rowland nt. No extra-axial fluid collections. No evidence of mass or mass effect. Normal garcia-white different iation. Stable Chiari I malformation. Normal 4th ventricle. Dystrophic calcification along the falx. Mastoid air cells are well aerated. Moderate mucosal thickening RIGHT maxillary sinus. Normal soft ti ssues. CT/CT head wo con* [id number] IMPRESSION: 1. No evidence of intracranial hemorrhage or mass effect. 2. Normal garcia-white differentiation. 3. Stable Chiari I malformation. 4. No acute intracranial findings.
--- NOTE | 2021-12-16 14:39 | ED_ITS ---
HPI - Headache General: Chief Complaint: Headache Stated Complaint: body aches, headache Time Seen by Provider: 12/16/21 14:34 Source: patient Mode of arrival: ambulatory Limitations: no limitations History of Present Illness: 41-year-old female presents emergency room complaining of headache with nausea and vomiting no vision changes. 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 She is unable to tell me exactly where it is. Review of the chart like she does have a tumor she has had Chiari malformation. She tried some [id number] medications at home for the headache with no relief. MD elicited complaint: headache Onset (ago): day(s) Onset description: gradually Location: frontal and occipital Quality & Timing: throbbing Exacerbating factors: light and noise Relieving factors: rest and dark room Associated symptoms: Reports malaise, nausea, photophobia and vomiting; Deny chest pain, confusion, cough, diaphoresis, eye pain, eye redness, fever(s), lightheadedness, loss of vision, neck stiffness, numbness, paresthesias, pre- syncope, rash, seizures, short of breath, sound sensitivity, syncope or weakness Treatments prior to arrival: acetaminophen and ibuprofen Review of Systems Const: Reports: malaise; Denies: fever(s) or diaphoresis ENMT: Denies: throat pain, ear or mastoid pain, nasal discharge or nasal congestion Card: Denies: chest pain, lightheadedness, syncope or pre-syncope Resp: Denies: dyspnea, productive cough or non-productive cough GI: Reports: nausea and vomiting : Denies: flank pain, difficulty voiding, dysuria, urinary frequency or urinary urgency Skin/Breast: Denies: rash Neuro: Denies: confusion PFSH ED PFSH: Medical History Cervical disc disease Conversion disorder Displacement of lumbar intervertebral disc Functional gait abnormality Gait instability Iron deficiency anemia Peroneal neuropathy Thoracic degenerative disc disease Surgical History H/O section H/O tubal ligation History of cholecystectomy History of hysteroscopy Family History Other Chiari malformation Neurofibromatosis Social History Smoking and tobacco status: current every day smoker cigarettes Packs smoked per day: 0.75 Alcohol intake: never Household members: spouse and children Marital status: Current occupational status: employed Current occupation: currently [employer] History of recent travel: No Physical Exam Const: COMMON NORMALS: no acute distress GENERAL APPEARANCE: cooperative and comfortable ORIENTATION/CONSCIOUSNESS: Yes awake, Yes oriented to person, Yes oriented to place and Yes oriented to time HENMT: COMMON NORMALS: normocephalic, atraumatic, hearing grossly normal bilaterally, external ears normal, EAC's normal, TM's normal bilaterally, Normal nasal mucous membranes and turbinates present, moist oral mucous membranes and oropharynx normal HEAD & SCALP: normocephalic and atraumatic NOSE: Normal nasal mucous membranes and turbinates present EXTERNAL EAR: Yes external ears normal EXTERNAL AUDITORY CANAL: EAC's normal TYMPANIC MEMBRANE: TM's nor mal bilaterally Eye: COMMON NORMALS: Equal, round and reactive pupils present, EOMs intact bilaterally, conjunctivae normal and no scleral icterus CONJUNCTIVA: Yes conjunctivae normal PUPIL: Yes Equal, round and reactive pupils present DIRECT OPHTHALMOSCOPY: Yes photophobia Neck/C-Spine: COMMON NORMALS: full ROM, no lymphadenopathy, supple and no JVD Resp: COMMON NORMALS: normal respiratory effort, No retractions, No use of accessory muscles and clear to auscultation bilaterally AUSCULTATION: clear to auscultation bilaterally Cardio: COMMON NORMALS: no JVD, regular rate, regular rhythm and No murmurs present (Cardio) RATE: regular rate RHYTHM: regular rhythm GI: COMMON NORMALS: Soft to palpation and No hepatosplenomegaly present AUSCULTATION: Yes normoactive bowel sounds PALPATION: Yes Soft to palpation, No Tenderness to palpation present (GI), No Guarding due to palpation present (GI) and Yes No hepatosplenomegaly present Extremity: COMMON NORMALS: normal to inspection, capillary refill normal, no clubbing, cyanosis or edema, no calf tenderness and no pedal edema Neuro: SENSORIUM/ORIENTATION: Yes oriented to person, Yes oriented to place and Yes oriented to time Skin: COMMON NORMALS: no rashes or lesions noted GENERAL SKIN EXAM: no rashes or lesions noted Course Vital Signs: Vital signs: Vital Signs Temperature 97.8 F 12/16/21 12:37 Pulse Rate 101 H 12/16/21 16:41 Respiratory Rate 16 12/16/21 12:37 Blood Pressure 146/71 12/16/21 16:41 Pulse Oximetry 97 12/16/21 16:41 MDM - Headache Medical Decision Making Improved with medications given will discharge patient home can use Phenergan as prescribed here as needed if has recurrent headache with nausea or vomiting along with other analgesics. Recommend follow-up with primary care return if has further problems. Medical Records I reviewed the patient's medical records. Lab Data I reviewed the patient's lab results. : 12/16/21 15:15 12/16/21 15:[address] 12/16/21 13:41 IMPRESSION: 1. No evidence of intracranial hemorrhage or mass effect. 2. Normal garcia-white differentiation. 3. Stable Chiari I malformation. 4. No acute intracranial findings. Laboratory Results WBC 10.6 10^3/uL (4.0-10.0) H 12/16/21 15:15 RBC 5.11 10^6/uL (4.1-5.3) 12/16/21 15:15 Hgb 15.6 g/dL (11.5-15.3) H 12/16/21 15:15 Hct 45.6 % (37.0-47.0) 12/16/21 15:15 MCV 89.2 fl (81-99) 12/16/21 15:15 MCH 30.5 pg (28.0-34.0) 12/16/21 15:15 MCHC 34.2 g/dL (30.0-36.0) 12/16/21 15:15 RDW 12.7 % (12.1-15.1) 12/16/21 15:15 Plt Count 260 10^3/cmm (130-400) 12/16/21 15:15 MPV 11.4 fL (7.4-10.4) H 12/16/21 15:15 Neut % (Auto) 78.8 % 12/16/21 15:15 Lymph % (Auto) 16.5 % 12/16/21 15:15 [place] % (Auto) 3.1 % 12/16/21 15:15 Eos % (Auto) 0.5 % 12/16/21 15:15 Baso % (Auto) 0.7 % 12/16/21 15:15 Neut # (Auto) 8.39 10^3/uL (1.8-7.7) H 12/16/21 15:15 Lymph # (Auto) 1.8 10^3/uL (0.8-4.8) 12/16/21 15:15 [place] # (Auto) 0.3 10^3/uL (0.2-0.9) 12/16/21 15:15 Eos # (Auto) 0.1 10^3/uL (0.0-0.8) 12/16/21 15:15 Baso # (Auto) 0.1 10^3/uL (0.0-0.1) 12/16/21 15:15 Nucleated RBC % (auto) 0 % 12/16/21 15:15 Nucleated RBCs # 0.0 /100WBC 12/16/21 15:15 Sodium 138 mmol/L (136-145) 12/16/21 15:15 Potassium 3.8 mmol/L (3.5-5.1) 12/16/21 15:15 Chloride 100 mmol/L (98-107) 12/16/21 15:15 Carbon Dioxide 26 mmol/L (22-29) 12/16/21 15:15 Anion Gap 15.8 (5-19) 12/16/21 15:15 BUN 8 mg/dL (6-20) 12/16/21 15:15 Creatinine 0.7 mg/dL (0.5-0.9) 12/16/21 15:15 GFR Calculation 92.7 mL/min (90-130) 12/16/21 15:15 Glucose 95 mg/dL (65-115) 12/16/21 15:15 Calculated Osmolality 284 mOsm/kg (285-295) L 12/16/21 15:15 Calcium 10.0 mg/dL (8.5-10.5) 12/16/21 15:15 Total Bilirubin 0.4 mg/dL (0.15-1.2) 12/16/21 15:15 AST 19 U/L (0-32) 12/16/21 15:15 ALT 14 U/L (0-33) 12/16/21 15:15 Alkaline Phosphatase 74 IU/L (35-105) 12/16/21 15:15 Total Protein 7.0 g/dL (6.6-8.7) 12/16/21 15:15 Albumin 4.7 g/dL (3.5-5.2) 12/16/21 15:15 Globulin 2.3 g/dL (1.3-4.6) 12/16/21 15:15 Discharge Plan Discharge Patient Disposition: Home Clinical Impression: Tension headache, Chiari malformation Condition: Stable Prescriptions: New promethazine 25 mg tablet 25 mg PO Q6H PRN (Reason: headache) Qty: 20 0RF No Action baclofen 10 mg tablet 10 mg PO TID PRN (Reason: muscle spasm) Qty: 15 0RF clindamycin HCl 300 mg capsule 300 mg PO TID 7 Days Qty: 21 0RF Tylenol Extra Strength 500 mg Tablet 1,000 mg PO PRN 0RF oxybutynin chloride 5 mg tablet 5 mg PO TID PRN (Reason: Bladder Spasms) 0RF Excedrin Migraine 250-250-65 mg Tablet 2 tab PO PRN 0RF naproxen 500 mg Tablet 500 - 1,000 mg PO PRN 0RF Discharge Orders: Discharge ED (Routine); Ordered 12/16/21 Ordered By: Nilton Kessler Referrals: Estephanai Valladares DO [Primary Care Provider] - Discharge Diet: Usual diet Discharge Activity: Increase activity as tolerated Patient Instructions: Opioid Safety Activity Restrictions/Additional Instructions: Follow-up with your primary care doctor or your neurologist as needed. Coding Level of Care Code ED Flag Football Coach for Kathi Canseco
[2021-12-16] MEDS: sodium chloride 0.9% 1,000 ML 999 ML IV (15:17)
[2021-12-16] MEDS: diphenhydrAMINE 50 mg/mL SDV 1mL IVP (15:19)
[2021-12-16] MEDS: ketorolac 30 mg/mL INJ IVP (15:19)
[2021-12-16] MEDS: promethazine 25 mg/mL SDV 1 mL IM (15:19)
[2021-12-16 15:37] LABS: Basophils # 0.1 10^3/uL (0.0-0.1); Basophils % 0.7 %; Eosinophils # 0.1 10^3/uL (0.0-0.8); Eosinophils % 0.5 %; Hematocrit 45.6 % (37.0-47.0); Hemoglobin 15.6 g/dL (11.5-15.3); Lymphocytes # 1.8 10^3/uL (0.8-4.8); Lymphocytes % 16.5 %; Mean Corpuscular HGB Conc 34.2 g/dL (30.0-36.0); Mean Corpuscular Hemoglobin 30.5 pg (28.0-34.0); Mean Corpuscular Volume 89.2 fl (81-99); Mean Platelet Volume 11.4 fL (7.4-10.4); Monocytes # 0.3 10^3/uL (0.2-0.9); Monocytes % 3.1 %; Neutrophils # 8.39 10^3/uL (1.8-7.7); Neutrophils % 78.8 %; Nucleated Red Blood Cells % 0 %; Platelet Count 260 10^3/cmm (130-400); Red Blood Count 5.11 10^6/uL (4.1-5.3); Red Cell Distribution Width 12.7 % (12.1-15.1); White Blood Count 10.6 10^3/uL (4.0-10.0)
[2021-12-16 15:58] LABS: Alanine Aminotransferase 14 U/L (0-33); Albumin Level 4.7 g/dL (3.5-5.2); Alkaline Phosphatase 74 IU/L (35-105); Anion Gap 15.8 (5-19); Aspartate Amino Transferase 19 U/L (0-32); Blood Urea Nitrogen 8 mg/dL (6-20); Carbon Dioxide 26 mmol/L (22-29); Chloride 100 mmol/L (98-107); Creatinine Clr Calc Pharmacy 94.3979; Globulin 2.3 g/dL (1.3-4.6); Glomerular Filtration Rate 92.7 mL/min (90-130); Glucose 95 mg/dL (65-115); Osmolality Calculated 284 mOsm/kg (285-295); Potassium 3.8 mmol/L (3.5-5.1); Sodium 138 mmol/L (136-145); Total Bilirubin 0.4 mg/dL (0.15-1.2)
[2021-12-16 16:41] VITALS: BP 146/71; PULSE 101; O2SAT 97
== END 2021-12-16 17:05 | disposition home or self-care (01) ==
PROVIDERS: Emergency Provider Family Medicine; PCP Family Medicine
DX: G44.209 Tension-type headache, unspecified, not intractable (principal); G93.5 Compression of brain; F17.210 Nicotine dependence, cigarettes, uncomplicated
CPT/HCPCS: 70450; 80053; 85025; 96361; 96372; 96374; 96375; 99284; J1200; J1885; J2550; J7030

== ENCOUNTER 2023-04-19 19:46 | Emergency (ER) | payer BC, SELFPAY ==
[2023-04-19 19:50] VITALS: BP 194/123; PULSE 66; RESP 14; TEMP 36.5; O2SAT 97; BMI 22.4
--- NOTE | 2023-04-19 20:14 | W.ED.NECK ---
HPI - Neck Pain/Injury General: Chief Complaint: Neck Pain/Injury Stated Complaint: right shoulder pain/neck pain Time Seen by Provider: 04/19/23 20:01 Source: patient Mode of arrival: ambulatory Limitations: no limitations History of Present Illness: 44-year-old female states been having right-sided neck pain over the last 2 days states she woke up with a function a crick in her neck states that she has been having worsening pain and somatic spasms to the right side of her neck states that she has to hold her head looking to the right she tries to look to the left she has pain along her trapezius muscle rates pain currently a 7 out of 10 has had mild headaches had some pain shooting down her arm as well denies any weakness Associated symptoms: Reports headache(s); Denies nausea Review of Systems Const: Denies: fever(s), chills, body aches or change in appetite Eyes: Denies: blurry vision ENMT: Denies: throat pain or dental pain Card: Denies: chest pain Resp: Denies: dyspnea GI: Denies: abdominal pain, nausea, vomiting or diarrhea Musc: Reports: neck pain; Denies: back pain Skin/Breast: Denies: rash Neuro: Reports: headache(s) PFSH ED PFSH: Medical History (Updated 04/19/23 @ 21:07 by Hang Noyola MD) Cervical disc disease Conversion disorder Displacement of lumbar intervertebral disc Functional gait abnormality Gait instability Iron deficiency anemia Peroneal neuropathy Thoracic degenerative disc disease Surgical History H/O section H/O tubal ligation History of cholecystectomy History of hysteroscopy Family History Other Chiari malformation Neurofibromatosis Social History Smoking and tobacco status: current every day smoker cigarettes Packs smoked per day: 0.75 Alcohol intake: never Substance/Drug Use: never Household members: spouse and children Marital status: Current occupational status: employed Current occupation: currently [employer] Physical Exam Const: COMMON NORMALS: no acute distress and patient oriented x3 HENMT: COMMON NORMALS: normocephalic and atraumatic HEAD & SCALP: normocephalic and atraumatic Eye: COMMON NORMALS: conjunctivae normal CONJUNCTIVA: Yes conjunctivae normal Neck/C-Spine: OTHER: Very tender along right trapezius muscle she has her head turned to the right states that it hurts anytime she tries to move it to the left Chest: COMMONS NORMALS: normal inspection of the chest Resp: COMMON NORMALS: normal respiratory effort Cardio: COMMON NORMALS: regular rate RATE: regular rate GI: INSPECTION: Yes normal to inspection Extremity: COMMON NORMALS: normal to inspection Neuro: COMMON NORMALS: patient oriented x3 Psych: COMMON NORMALS: mental status grossly normal Skin: COMMON NORMALS: no rashes or lesions noted GENERAL SKIN EXAM: no rashes or lesions noted Procedures Nerve Block Nerve Block 1: Local Anesthetic: bupivacaine 0.5% Amount of anesthesia used (mL): 10 Side: right Nerve Blocks: occipital Patient Tolerated Procedure: well Complications: none Additional Comments: Trigger point injection to right occipital Course Vital Signs: Vital signs: Vital Signs Temperature 97.7 F 04/19/23 19:50 Pulse Rate 66 04/19/23 19:50 Respiratory Rate 14 04/19/23 19:50 Blood Pressure 194/123 04/19/23 19:50 Pulse Oximetry 97 04/19/23 19:50 Oxygen Delivery Me thod Room Air 04/19/23 19:50 MDM - Neck Pain/Injury Medical Decision Making Patient presents here with neck pain is likely muscle spasm she is quite tender did do a trigger point injection with bupivacaine she does feel improved she is to ice we will place her on Valium at home. Medical Records I reviewed the patient's medical records. Lab Data I reviewed the patient's lab results. Discharge Plan Discharge Patient Disposition: Home Clinical Impression: Neck pain, Neck muscle spasm Condition: Stable Prescriptions: New Naprosyn 500 mg tablet 500 mg PO BID PRN (Reason: pain) Qty: 20 0RF Valium 5 mg tablet 5 mg PO BID PRN (Reason: muscle spasm) Qty: 10 0RF No Action tizanidine 4 mg capsule 4 mg PO TID PRN amitriptyline 10 mg tablet 10 mg PO DAILY hydrocodone-acetaminophen 7.5-325 mg tablet 1 tab PO Q4H PRN (DME) CPAP Device See Rx Instructions .ROUTE Rx Instructions: As directed escitalopram oxalate 20 mg tablet 20 mg PO DAILY Qulipta 60 mg tablet 60 mg PO DAILY sumatriptan succinate 100 mg tablet 100 mg PO Q2H PRN Rx Instructions: do not exceed 2 doses per 24 hrs ondansetron HCl 8 mg tablet 8 mg PO Q8H Tylenol Extra Strength 500 mg Tablet 1,000 mg PO PRN Excedrin Migraine 250-250-65 mg Tablet 2 tab PO PRN naproxen 500 mg Tablet 500 - 1,000 mg PO PRN Discharge Orders: Discharge ED (Routine); Ordered 04/19/23 Ordered By: Hang Noyola Referrals: Estephania Valladares DO [Primary Care Provider] - Discharge Diet: Advance as tolerated Discharge Activity: Resume usual activity Patient Instructions: Spasmodic Torticollis (ED), Neck Pain (ED) Coding Level of Care Code ED Animal Shelter Clerk for Kathi Canseco
[2023-04-19] MEDS: morphine 4 mg/mL SDV 1 mL IM (20:22)
[2023-04-19] MEDS: ketorolac 60 mg/2 mL INJ IM (20:22)
[2023-04-19] MEDS: diazePAM 5 mg Tablet PO (20:23)
[2023-04-19 21:17] VITALS: BP 165/107; PULSE 85; RESP 16; TEMP 36.5; O2SAT 97
== END 2023-04-19 21:19 | disposition home or self-care (01) ==
PROVIDERS: Emergency Provider Emergency Medicine; PCP Family Medicine
DX: M62.830 Muscle spasm of back (principal); F17.210 Nicotine dependence, cigarettes, uncomplicated
CPT/HCPCS: 96372; 99284; J1885; J2270

== ENCOUNTER 2023-12-05 16:14 | Emergency (ER) | payer BC, SELFPAY ==
[2023-12-05 16:20] VITALS: BP 180/119; PULSE 79; RESP 18; TEMP 36.6; O2SAT 96
[2023-12-05 17:22] LABS: Glucose Point of Care 115 mg/dL (70-110)
[2023-12-05 17:24] VITALS: BP 179/110; PULSE 76; O2SAT 98
[2023-12-05 17:42] VITALS: BP 179/110; PULSE 69; O2SAT 97
[2023-12-05] MEDS: methylPREDNISolone sod succ 125 mg/2 mL INJ IVP (17:50)
[2023-12-05] MEDS: sodium chloride 0.9% 1,000 ML 999 ML IV (17:50)
[2023-12-05 17:51] LABS: Basophils # 0.1 10^3/uL (0.0-0.1); Eosinophils # 0.5 10^3/uL (0.0-0.8); Eosinophils % 5.7 %; Hematocrit 42.1 % (36-47); Lymphocytes # 2.4 10^3/uL (0.8-4.8); Lymphocytes % 28.8 %; Mean Corpuscular HGB Conc 33.7 g/dL (30-55); Mean Corpuscular Hemoglobin 30.7 pg (27-33); Mean Corpuscular Volume 91.1 fl (85-98); Mean Platelet Volume 10.5 fL (7.4-10.4); Monocytes # 0.6 10^3/uL (0.2-0.9); Monocytes % 7.3 %; Neutrophils # 4.72 10^3/uL (1.8-7.7); Nucleated Red Blood Cells % 0 %; Platelet Count 239 10^3/cmm (157-399); Red Blood Count 4.62 10^6/uL (3.85-5.65); Red Cell Distribution Width 12.7 % (12.1-15.1); White Blood Count 8.27 10^3/uL (3.29-11.43)
[2023-12-05 18:02] LABS: Alanine Aminotransferase 11 U/L (0-33); Albumin Level 4.3 g/dL (3.5-5.2); Alkaline Phosphatase 56 U/L (35-105); Anion Gap 9.8 (5-19); Aspartate Amino Transferase 18 U/L (0-32); Blood Urea Nitrogen 8 mg/dL (6-20); Calcium 8.9 mg/dL (8.5-10.5); Carbon Dioxide 30 mmol/L (22-29); Chloride 104 mmol/L (98-107); Globulin 2.3 g/dL (1.3-4.6); Glomerular Filtration Rate 68.7 mL/min (90-130); Glucose 92 mg/dL (65-115); Osmolality Calculated 288 mOsm/kg (285-295); Potassium 3.8 mmol/L (3.5-5.1); Sodium 140 mmol/L (136-145); Total Bilirubin 0.2 mg/dL (0.15-1.2); Total Protein 6.6 g/dL (6.6-8.7)
--- NOTE | 2023-12-05 18:02 | ED_ITS ---
HPI - General Adult 2 General: Chief complaint: General Medical Stated complaint: low sugar Time Seen by Provider: 12/05/23 17:21 History of Present Illness: 43-year-old female who has a history of multiple sclerosis, hypertension and chronic hypoglycemia who presents the emergency room with malaise, weakness, somnolence and low blood sugars. She says she has not felt good all day today. She has a headache. No cough. No shortness of breath. No altered mental status. No focal motor deficits. No chest pain. No abdominal pain. Review of Systems 2 Narrative: Constitutional symptoms: Negative except as documented in HPI. Skin symptoms: Negative except as documented in HPI. Eye symptoms: Negative except as documented in HPI. ENMT symptoms: Negative except as documented in HPI. Respiratory symptoms: Negative except as documented in HPI. Cardiovascular symptoms: Negative except as documented in HPI. Gastrointestinal symptoms: Negative except as documented in HPI. Genitourinary symptoms: Negative except as documented in HPI. Musculoskeletal symptoms: Negative except as documented in HPI. Neurologic symptoms: Negative except as documented in HPI. Psychiatric symptoms: Negative except as documented in HPI. Endocrine symptoms: Negative except as documented in HPI. PFS ED 2 PFSH: Medical History (Updated 12/05/23 @ 21:30 by Paris Baker MD) Peroneal neuropathy Functional gait abnormality Conversion disorder Gait instability Displacement of lumbar intervertebral disc Thoracic degenerative disc disease Cervical disc disease Iron deficiency anemia Surgical History History of cholecystectomy H/O section H/O tubal ligation History of hysteroscopy Family History Other Chiari malformation Neurofibromatosis Social History Smoking and tobacco/nicotine status: current every day tobacco/nicotine user cigarettes Packs smoked per day: 0.75 Alcohol intake: never Substance/Drug Use: never Household members: spouse and children Marital status: Current occupational status: employed Current occupation: currently [employer] Physical Exam 2 Narrative: EXAM NARRATIVE: General: Alert, patient appears like she does not feel well Skin: Warm, dry. Head: Normocephalic, atraumatic. Neck: Supple, trachea midline. Eye: Extraocular movements are intact. Ears, nose, mouth and throat: mucosa moist. Cardiovascular: Regular, Normal peripheral perfusion. Respiratory: Lungs are clear to auscultation, respirations are non-labored, breath sounds are equal, Symmetrical chest wall expansion. Gastrointestinal: Soft, Nontender, Non distended, Normal bowel sounds. Musculoskeletal: Normal ROM, no deformity. Neurological: Alert and oriented, No focal neurological deficit observed. Psychiatric: Cooperative, appropriate mood & affect. Course 2 Vital Signs: Vital signs: Vital Signs Temperature 97.9 F 12/05/23 16:20 Pulse Rate 66 12/05/23 19:15 Respiratory Rate 16 12/05/23 19:15 Blood Pressure 183/117 12/05/23 19:15 Pulse Oximetry 99 12/05/23 19:15 Oxygen Delivery Me thod Room Air 12/05/23 19:15 MDM - General Adult Medical Decision Making Medical decision making: Differential diagnosis including but not limited to and based on the above HPI, review of systems and physical exam: With the patient having malaise and headache I would be concern for viral illness so respiratory panel was ordered. Also concern for other infection such as urinary tract infection. I would also have concern for renal failure. Checking a CBC for anemia or leukocytosis. Orders placed to evaluate differential diagnosis based on the above differential, HPI and physical exam Lab Review: Laboratory results were reviewed and interpreted by myself the emergency room physician. Sugar has stayed fairly well normal while she is been here. No leukocytosis. No anemia. Renal function is normal at 8 and 0.9. Urinalysis is clear. Respiratory panel is clear. CT head: No acute intracranial process. no intracranial hemorrhage, no evidence of infarct. no evidence of acute fracture.This was reviewed and interpreted by myself the ER physician. I reviewed the patient's medical record. Reexamination: Patient remained stable. No altered mental status. No somnolence. She says she feels quite a bit better after steroid shot. We will put her on steroids for a few days to artificially drive up her sugars and she has follow-up with endocrine fairly soon. Lab Data 12/05/23 17:32 12/05/23 17:[address] 12/05/23 19:48 IMPRESSION: No acute intracranial pathology. Laboratory Results WBC 8.27 10^3/uL (3.29-11.43) 12/05/23 17:32 RBC 4.62 10^6/uL (3.85-5.65) 12/05/23 17: Hgb 14.20 g/dL (11.27-16.99) 12/05/23 17: Hct 42.1 % (36-47) 12/05/23 17:32 MCV 91.1 fl (85-98) 12/05/23 17: MCH 30.7 pg (27-33) 12/05/23 17: MCHC 33.7 g/dL (30-55) 12/05/23 17: RDW 12.7 % (12.1-15.1) 12/05/23 17: Plt Count 239 10^3/cmm (157-399) 12/05/23 17: MPV 10.5 fL (7.4-10.4) H 12/05/23 17:32 Neut % (Auto) 57.0 % 12/05/23 17: Lymph % (Auto) 28.8 % 12/05/23 17:32 Keith % (Auto) 7.3 % 12/05/23 17:32 Eos % (Auto) 5.7 % 12/05/23 17:32 Baso % (Auto) 1.0 % 12/05/23 17: Neut # (Auto) 4.72 10^3/uL (1.8-7.7) 12/05/23 17:32 Lymph # (Auto) 2.4 10^3/uL (0.8-4.8) 12/05/23 17:32 Keith # (Auto) 0.6 10^3/uL (0.2-0.9) 12/05/23 17:32 Eos # (Auto) 0.5 10^3/uL (0.0-0.8) 12/05/23 17: Baso # (Auto) 0.1 10^3/uL (0.0-0.1) 12/05/23 17: Nucleated RBC % (auto) 0 % 12/05/23 17: Nucleated RBCs # 0.0 /100WBC 12/05/23 17:32 Specimen Type Arterial 12/05/23 20:15 Sample Site Radial, left 12/05/23 20:15 ABG pH 7.45 (7.35-7.45) 12/05/23 20:15 ABG pCO2 36.5 mmHg (35-45) 12/05/23 20:15 ABG pO2 83.1 mmHg (80.0-100.0) 12/05/23 20:15 ABG PO2/FiO2 Ratio 0 12/05/23 20:15 ABG HCO3 25.2 mmol/L (22-26) 12/05/23 20:15 ABG O2 Saturation 98.4 12/05/23 20:15 ABG Base Excess 1.4 mmol/L (-2.0-2.0) 12/05/23 20:15 Gian Test Pos 12/05/23 20:15 A-a O2 Gradient 2.7 mmHg (5-10) L 12/05/23 20:15 Hematocrit 43.1 % (37-47) 12/05/23 20:15 Hgb O2 Saturation 92.8 % (95-100) L 12/05/23 20:15 Carboxyhemoglobin 4.7 %THgb (0.4-20.1) 12/05/23 20:15 Methemoglobin 0.9 % (0.4-1.5) 12/05/23 20:15 Total Hemoglobin 14.1 g/dL (12-16) 12/05/23 20:15 Sodium 142.0 mmol/L (131-143) 12/05/23 20:15 Potassium 3.9 mmol/L (3.5-5.0) 12/05/23 20:15 Glucose 107.0 mg/dL (70-115) 12/05/23 20:15 Ionized Calcium 1.2 mmol/L (1.1-1.4) 12/05/23 20:15 O2 Delivery Device None 12/05/23 20:15 FiO2 21.0 % 12/05/23 20:15 Light Rail Train Operator ID [place] 12/05/23 20:15 Sodium 140 mmol/L (136-145) 12/05/23 17:32 Potassium 3.8 mmol/L (3.5-5.1) 12/05/23 17:32 Chloride 104 mmol/L (98-107) 12/05/23 17:32 Carbon Dioxide 30 mmol/L (22-29) H 12/05/23 17:32 Anion Gap 9.8 (5-19) 12/05/23 17:32 BUN 8 mg/dL (6-20) 12/05/23 17:32 Creatinine 0.9 mg/dL (0.5-0.9) 12/05/23 17:32 GFR Calculation 68.7 mL/min (90-130) L 12/05/23 17:32 Glucose 92 mg/dL (65-115) 12/05/23 17:32 POC Glucose 134 mg/dL (70-110) H 12/05/23 20:53 Calculated Osmolality 288 mOsm/kg (285-295) 12/05/23 17:32 Calcium 8.9 mg/dL (8.5-10.5) 12/05/23 17:32 Total Bilirubin 0.2 mg/dL (0.15-1.2) 12/05/23 17:32 AST 18 U/L (0-32) 12/05/23 17:32 ALT 11 U/L (0-33) 12/05/23 17:32 Alkaline Phosphatase 56 U/L (35-105) 12/05/23 17:32 Total Protein 6.6 g/dL (6.6-8.7) 12/05/23 17:32 Albumin 4.3 g/dL (3.5-5.2) 12/05/23 17:32 Globulin 2.3 g/dL (1.3-4.6) 12/05/23 17:32 HCG, Qual Negative (Negative) 12/05/23 18:21 Urine Color Colorless (Yellow) 12/05/23 18:21 Urine Appearance Clear (CLEAR) 12/05/23 18:21 Urine pH 7 (5-7) 12/05/23 18:21 Ur Specific [place] 1.005 (1.005-1.030) 12/05/23 18:21 Urine Protein Neg (Negative) 12/05/23 18:21 Urine Glucose (UA) Norm (Normal) 12/05/23 18:21 Urine Ketones Negative (Negative) 12/05/23 18:21 Urine Blood Neg (Negative) 12/05/23 18:21 Urine Nitrate Negative (Negative) 12/05/23 18:21 Urine Bilirubin Neg (Negative) 12/05/23 18:21 Urine Urobilinogen Norm mg/dL (Negative) 12/05/23 18:21 Ur Leukocyte Esterase Negative (Negative) 12/05/23 18:21 Urine RBC None /hpf (0-2) 12/05/23 18:21 Urine WBC None /hpf (0-5) 12/05/23 18:21 Ur Squamous Epith Cells None /hpf (0-5) 12/05/23 18:21 Amorphous Sediment Not Reportable 12/05/23 18:21 Urine Bacteria Trace /hpf (NONE) 12/05/23 18:21 Adenovirus (PCR) Not detected (NOT DETECT) 12/05/23 17:41 C. pneumoniae DNA (PCR) Not detected (NOT DETECT) 12/05/23 17:41 Coronavirus 229E (PCR) Not detected (NOT DETECT) 12/05/23 17:41 Human Metapneumovir PCR Not detected (NOT DETECT) 12/05/23 17:41 Influenza A (H1) PCR Not detected (NOT DETECT) 12/05/23 17:41 Influ A (H1/09) PCR Not detected (NOT DETECT) 12/05/23 17:41 Influenza A (H3) PCR Not detected (NOT DETECT) 12/05/23 17:41 Influenza Type A Ag Cancelled 12/05/23 17:41 Influenza Type A (PCR) Not detected (NOT DETECT) 12/05/23 17:41 Influenza Type B Ag Cancelled 12/05/23 17:41 Influenza Type B (PCR) Not detected (NOT DETECT) 12/05/23 17:41 M. pneumoniae (PCR) Not detected (NOT DETECT) 12/05/23 17:41 Parainfluenza 1 (PCR) Not detected (NOT DETECT) 12/05/23 17:41 Parainfluenza 2 (PCR) Not detected (NOT DETECT) 12/05/23 17:41 Parainfluenza 3 (PCR) Not detected (NOT DETECT) 12/05/23 17:41 Parainfluenza 4 (PCR) Not detected (NOT DETECT) 12/05/23 17:41 RSV Type A (PCR) Not detected (NOT DETECT) 12/05/23 17:41 RSV Type B (PCR) Not detected (NOT DETECT) 12/05/23 17:41 Entero/Rhino (PCR) Not detected (NOT DETECT) 12/05/23 17:41 SARS-CoV-2 (PCR) Not detected (NOT DETECT) 12/05/23 17:41 All radiology interpretation(s) finalized by discharge Other Data Assessment and plan: Hypoglycemia Malaise -IV fluids given for some mild dehydration and IV steroids were given. Sugars have remained fairly stable here. We discussed glucose containing drinks that are designed for diabetics. We will place her on steroids for 5 days. - Discharged home - Discussed findings and plan with patient. Answered any questions. - All laboratory values were reviewed and interpreted personally by myself, the ER physician - All imaging was reviewed and interpreted personally by myself, the ER physician. - Evaluation and treatment of this problem were appropriate in the emergency setting Discharge Plan Discharge Patient Disposition: Home Clinical Impression: Hypoglycemia Condition: Stable Prescriptions: New dexamethasone 6 mg tablet 6 mg PO DAILY 5 Days Qty: 5 0RF No Action tizanidine 4 mg capsule 4 mg PO TID PRN amitriptyline 10 mg tablet 10 mg PO DAILY hydrocodone-acetaminophen 7.5-325 mg tablet 1 tab PO Q4H PRN (DME) CPAP Device See Rx Instructions .ROUTE Rx Instructions: As directed escitalopram oxalate 20 mg tablet 20 mg PO DAILY Qulipta 60 mg tablet 60 mg PO DAILY sumatriptan succinate 100 mg tablet 100 mg PO Q2H PRN Rx Instructions: do not exceed 2 doses per 24 hrs ondansetron HCl 8 mg tablet 8 mg PO Q8H Tylenol Extra Strength 500 mg Tablet 1,000 mg PO PRN Excedrin Migraine 250-250-65 mg Tablet 2 tab PO PRN naproxen 500 mg Tablet 500 - 1,000 mg PO PRN Naprosyn 500 mg tablet 500 mg PO BID PRN (Reason: pain) Qty: 20 0RF Valium 5 mg tablet 5 mg PO BID PRN (Reason: muscle spasm) Qty: 10 0RF Discharge Orders: Discharge ED (Routine); Ordered 12/05/23 Ordered By: Paris Baker Referrals: Estephania Valladares DO [Primary Care Provider] - (You have been screened and evaluated and felt safe for discharge. Health conditions do change or evolve sometimes and as such it is important that you follow up with your Primary Doctor to be re checked, 3-5 days is a general good time frame for follow up. You are always welcome to return to the ED for re assessment if your symptoms are worsening or you have new concerns) Patient Instructions: Hypoglycemia Coding Level of Care Code ED Embosser Apprentice for Kathi Canseco
[2023-12-05 18:16] VITALS: BP 165/100; O2SAT 93
[2023-12-05 18:33] LABS: HCG Qualitative Urine. Negative (Negative)
[2023-12-05 19:13] LABS: Specific Gravity, Urine 1.005 (1.005-1.030); Urine Appearance Clear (CLEAR); Urine Color Colorless (Yellow); pH Urine 7 (5-7)
[2023-12-05 19:14] LABS: Add Urine Culture? No; Bacteria Urine TRACE /hpf; Bilirubin Urine Neg (Negative); Blood Urine Neg (Negative); Glucose Urine UA Norm (Normal); Ketones Urine Negative (Negative); Leukocyte Esterase Urine Negative (Negative); Nitrate Urine Negative (Negative); Protein Urine Neg (Negative); Urobilinogen Urine Norm (Negative)
[2023-12-05 19:15] VITALS: BP 183/117; PULSE 66; RESP 16; O2SAT 99
[2023-12-05 19:33] LABS: Glucose Point of Care 92 mg/dL (70-110)
[2023-12-05 19:40] LABS: Adenovirus Not Detected (NOT DETECT); Chlamydia Pneumoniae Not Detected (NOT DETECT); Coronavirus 229E,HKU1,NL63,OC4 Not Detected (NOT DETECT); Human Metapneumovirus Not Detected (NOT DETECT); Human Rhinovirus/Enterovirus Not Detected (NOT DETECT); Influenza A Not Detected (NOT DETECT); Influenza A H1 Not Detected (NOT DETECT); Influenza A H1-2009 Not Detected (NOT DETECT); Influenza A H3 Not Detected (NOT DETECT); Influenza B Not Detected (NOT DETECT); Mycoplasma Pneumoniae Not Detected (NOT DETECT); Parainfluenza Virus Type 1 Not Detected (NOT DETECT); Parainfluenza Virus Type 2 Not Detected (NOT DETECT); Parainfluenza Virus Type 3 Not Detected (NOT DETECT); Parainfluenza Virus Type 4 Not Detected (NOT DETECT); Respiratory Syncytial Virus A Not Detected (NOT DETECT); Respiratory Syncytial Virus B Not Detected (NOT DETECT); SARS-COV-2 Not Detected (NOT DETECT)
--- NOTE | 2023-12-05 19:48 | CTR_ITS ---
PROCEDURE INFORMATION: Exam: CT Head Without Contrast Exam date and time: 12/05/2023 8:07 PM Age: 43 years old Clinical indication: Pain; Headache TECHNIQUE: Imaging protocol: Computed tomography of the head without contrast. Radiation optimization: All CT scans at this facility use at least one of these dose optimization techniques: automated exposure control; mA and/or kV adjustment per patient size (includes targeted exams where dose is matched to clinical indication); or iterative reconstruction. COMPARISON: CT head wo con* [id number] 12/16/2021 2:24 PM RADIATION DOSE METRICS: Total DLP (mGy-cm): 1004.2 FINDINGS: Brain: No intracranial hemorrhage. No edema or mass effect. No significant deep white matter abnormality. 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 Cerebral ventricles: Normal ventricles. Paranasal sinuses: The paranasal sinuses are clear. Mastoid air cells: The mastoid air cells are clear. Bones/joints: No acute osseous abnormalities are seen. Soft tissues: Unremarkable. CT/CT head wo con* [id number] IMPRESSION: No acute intracranial pathology.
[2023-12-05 20:25] LABS: ABG PCO2 36.5 mmHg (35-45); ABG PH Result 7.45 (7.35-7.45); Alveolar-Arterial Oxygen Gradi 2.7 mmHg (5-10); Arterial Blood Gas Hematocrit 43.1 % (37-47); Base Excess ABG 1.4 mmol/L (-2.0-2.0); Blood Gas Allen Test Pos; Blood Gas Sample Site Radial, left; Blood Gas Sample Type Arterial; Carboxyhemoglobin 4.7 %THgb (0.4-20.1); HCO3 ABG 25.2 mmol/L (22-26); HGB O2 Sat 92.8 % (95-100); Ionized Calcium Level - ABG 1.2 mmol/L (1.1-1.4); Methemoglobin 0.9 % (0.4-1.5); Oxygen Saturation ABG 98.4; PO2 ABG 83.1 mmHg (80.0-100.0); PO2 FiO2 Ratio Arterial Blood 0; Potassium Level - ABG 3.9 mmol/L (3.5-5.0); Total Hemoglobin 14.1 g/dL (12-16)
[2023-12-05 20:55] LABS: Glucose Point of Care 134 mg/dL (70-110)
[2023-12-05 23:51] VITALS: BP 163/104; PULSE 69; RESP 16; O2SAT 98
[2023-12-08 11:46] LABS: Glucose Point of Care 89 mg/dL (70-110)
== END 2023-12-05 21:40 | disposition home or self-care (01) ==
PROVIDERS: Emergency Provider Emergency Medicine; PCP Family Medicine
DX: E16.2 Hypoglycemia, unspecified (principal); Z11.52 Encounter for screening for COVID-19; F17.210 Nicotine dependence, cigarettes, uncomplicated
CPT/HCPCS: 36416; 36600; 70450; 80051; 80053; 81001; 81025; 82330; 82805; 82962; 85025; 87486; 87581; 87633; 96361; 96374; 99285; J2919; J7030

== ENCOUNTER 2024-07-03 13:08 | Outpatient (CLI) | payer BC, SELFPAY ==
--- NOTE | 2024-07-03 13:11 | US_ITS ---
WS: [id number] DIAGNOSTIC BILATERAL DIGITAL BREAST TOMOSYNTHESIS MAMMOGRAPHY WITH CAD LEFT breast ultrasound, limited HISTORY: BREAST PAIN/L BREAST MASS COMPARISON: None available. TECHNIQUE: Bilateral craniocaudad, mediolateral oblique, and mediolateral views are submitted with to mosynthesis and SM. Spot compression LEFT CC and MLO. Computer aided detection utilized. Breast composition: The breasts are heterogeneously dense, which may obscure small masses. Markers were placed in the upper outer quadrant of the LEFT breast. There is no mass identified. No d istortion. Scattered fibroglandular densities in each breast. LEFT breast ultrasound, limited. Ultrasound is directed to the area of palpable abnormality. In the LEFT breast at 3:00, 1 cm from the nipple is a hyperechoic mass with cystic central structure measuring 4.2 x 3.1 x 5.5 mm. This is sean y nonspecific. This does correspond to the palpable abnormality and is tender. This may be an area of fat necrosis or atypical neoplasm. US/US breast LT limited* [id number] IMPRESSION: BI-RADS: 4 - Suspicious Finding - Biopsy Should Be Considered FOLLOW UP: Biopsy Recommended Notified Estephania Valladares DO at 07/03/2024 2:34 PM. Discussed with Mary.
== END 2024-07-03 13:09 | disposition home or self-care (01) ==
PROVIDERS: PCP Family Medicine; Visit Provider Family Medicine
DX: N63.23 Unspecified lump in the left breast, lower outer quadrant (principal); R92.333 Mammographic heterogeneous density, bilateral breasts; N64.4 Mastodynia
CPT/HCPCS: 76642; 77062; G0279

== ENCOUNTER 2024-11-10 14:29 | Emergency (ER) | payer BC, SELFPAY ==
--- NOTE | 2024-11-10 14:36 | CTR_ITS ---
PROCEDURE INFORMATION: Exam: CT Cervical Spine Without Contrast Exam date and time: 11/10/2024 4:03 PM Age: 44 years old Clinical indication: Neck pain; HX of ms; Additional info: Bilateral cervical radiculopathy TECHNIQUE: Imaging protocol: Computed tomography of the cervical spine without contrast. Radiation optimization: All CT scans at this facility use at least one of these dose optimization techniques: automated exposure control; mA and/or kV adjustment per patient size (includes targeted exams where dose is matched to clinical indication); or iterative reconstruction. COMPARISON: MR cervical spin wo con* [id number] 04/23/2020 12:16 PM RADIATION DOSE METRICS: Total DLP (mGy-cm): 189.67 FINDINGS: Bones: No acute fracture. Normal alignment. No significant disc bulge or herniation. No severe spinal canal stenosis. No significant neural foraminal narrowing. Lungs: Lung apices are normal. Soft tissues: Unremarkable. CT/CT cervical spin wo con* [id number] IMPRESSION: No acute findings.
[2024-11-10 14:48] VITALS: BP 121/85; PULSE 69; RESP 26; TEMP 36.6; O2SAT 100; BMI 25.0
--- NOTE | 2024-11-10 14:57 | ECG_ITS ---
[email or web address] ITM Software Test Date: 2024-11-10 Pat Name: Cierra Gilliam Department: Room: Gender: Female [employer]: : 1980 Requested By: Nilton Ellington Order Number: [id number] Reading MD: Measurements Intervals [place] Rate: 74 P: 46 MO: 111 QRS: 70 QRSD: 94 T: 55 QT: 407 QTc: 452 Interpretive Statements SINUS RHYTHM WITH SHORT MO INTERVAL NONSPECIFIC T-WAVE ABNORMALITY No previous ECG available for comparison [email or web address]
--- NOTE | 2024-11-10 14:57 | XRR_ITS ---
PROCEDURE INFORMATION: Exam: XR Chest Exam date and time: 11/10/2024 3:52 PM Age: 44 years old Clinical indication: Cough and dyspnea; Additional info: Dyspnea/cough TECHNIQUE: Imaging protocol: Radiologic exam of the chest. Views: 1 view. COMPARISON: CR XR chest 1V [id number] 04/05/2019 9:18 PM FINDINGS: Lungs: Ill-defined haziness in the medial right lung base. Pleural spaces: Unremarkable. No pleural effusion. No pneumothorax. Heart/Mediastinum: Unremarkable. No cardiomegaly. Bones/joints: Unremarkable. XR/XR chest 1V portable [id number] IMPRESSION: Ill-defined haziness in the medial right lung base with possible infiltrate in this region.
--- NOTE | 2024-11-10 15:14 | W.ED.EXTPRO ---
HPI - Extremity Problem General: Chief complaint: Extremity Problem,Nontraumatic Stated complaint: neck pain into both arms Time Seen by Provider: 11/10/24 14:50 History of Present Illness: 44-year-old female presents emergency room with onset of neck pain radiating to her left shoulder and her back. Began earlier in the week quite a bit worse yesterday she seen a massage therapist that seemed to help to that she tried some muscle relaxers some heat. Despite this it began to get worse. Then this afternoon it became sharply worse she did not really recognize any event that seemed to precipitate sudden worsening. No recent trauma. Patient states she has neck pain now radiating into both arms she is not particular short of breath she has a history of headaches she does not have a history of any coronary artery disease she does have some accompanying chest type pain that began after she arrived here. When she first arrived she was curled up in a near position while sitting leaning to her left with her head slightly side bent left. She states that its most comfortable position she does not want to move and is difficult to even get any imaging done required pain medications prior to doing the imaging. No fever sweats chills no rash. Associated symptoms: Reports chest pain; Deny fever(s) or rash Related Data Home Medications ?Medication ?Instructions ?Recorded ?Confirmed acetaminophen 500 mg tablet 1,000 mg PO Q6H PRN Pain 09/01/20 11/10/24 (Tylenol Extra Strength) [id number] 250 2 tab PO Q6H PRN Migraine Headache 09/01/20 11/10/24 mg-250 mg-65 mg tablet (Excedrin Migraine) CPAP 04/19/23 11/10/24 amitriptyline 10 mg tablet 10 mg PO BEDTIME 04/19/23 11/10/24 atogepant 60 mg tablet (Qulipta) 60 mg PO DAILY 04/19/23 11/10/24 ondansetron HCl 8 mg tablet 8 mg PO Q8H PRN Nausea 04/19/23 11/10/24 sumatriptan succinate 100 mg tablet 100 mg PO Q2H PRN Migraine Headache 04/19/23 11/10/24 tizanidine 4 mg capsule 4 mg PO TID PRN Spasms 04/19/23 11/10/24 hydrocodone 10 mg-acetaminophen 1 tab PO BEDTIME 11/10/24 11/10/24 325 mg tablet Previous Rx's ?Medication ?Instructions ?Recorded diazepam 5 mg tablet (Valium) 5 mg PO BID PRN muscle spasm #10 04/19/23 tabs naproxen 500 mg tablet (Naprosyn) 500 mg PO BID PRN pain #20 tabs 04/19/23 diclofenac sodium 75 mg 75 mg PO Q12H PRN pain #20 tabs 11/10/24 tablet,delayed release hydrocodone 5 mg-acetaminophen 325 1 tab PO Q6H PRN pain #20 tabs 11/10/24 mg tablet prednisone 20 mg tablet 20 mg PO TID #15 tabs 11/10/24 tizanidine 4 mg tablet 4 mg PO Q6H PRN muscle spasticity 11/10/24 #20 tabs Allergies Allergy/AdvReac Type Severity Reaction Status Date / Time codeine AdvReac Mild Unknown Verified 04/19/23 19:50 Penicillins AdvReac Mild Unknown Verified 04/19/23 19:50 Review of Systems Const: Denies: fever(s) or chills Card: Reports: chest pain Resp: Denies: dyspnea GI: Denies: abdominal pain : Denies: dysuria, urinary frequency or urinary urgency Musc: Reports: neck pain; Denies: back pain Skin/Breast: Denies: rash PFSH ED PFSH: Medical History (Updated 11/10/24 @ 20:09 by Nilton Kessler DO) Peroneal neuropathy Functional gait abnormality Conversion disorder Gait instability Displacement of lumbar intervertebral disc Thoracic degenerative disc disease Cervical disc disease Iron deficiency anemia Surgical History History of cholecystectomy H/O section H/O tubal ligation History of hysteroscopy Family History Other Chiari malformation Neurofibromatosis Social History Smoking and tobacco/nicotine status: current every day tobacco/nicotine user cigarettes Packs smoked per day: 0.75 Alcohol intake: never Substance/Drug Use: never Household members: spouse and children Marital status: Current occupational status: employed Current occupation: currently [employer] Physical Exam Const: GENERAL APPEARANCE: cooperative ORIENTATION/CONSCIOUSNESS: Yes awake, Yes oriented to person, Yes oriented to place and Yes oriented to time HENMT: COMMON NORMALS: normocephalic, atraumatic and hearing grossly normal bilaterally HEAD & SCALP: normocephalic and atraumatic Resp: COMMON NORMALS: normal respiratory effort, No retractions, No use of accessory muscles and clear to auscultation bilaterally AUSCULTATION: clear to auscultation bilaterally Cardio: COMMON NORMALS: regular rate, regular rhythm and No murmurs present (Cardio) RATE: regular rate RHYTHM: regular rhythm GI: COMMON NORMALS: Soft to palpation and No hepatosplenomegaly present AUSCULTATION: Yes normoactive bowel sounds PALPATION: Yes Soft to palpation, No Tenderness to palpation present (GI), No Guarding due to palpation present (GI) and Yes No hepatosplenomegaly present Extremity: COMMON NORMALS: normal to inspection, capillary refill normal, no clubbing, cyanosis or edema, no calf tenderness and no pedal edema OTHER: Scenario Writer strength equal bilaterally. Radial and ulnar pulses equal in the left and right. Sensation in the upper extremities normal Neuro: SENSORIUM/ORIENTATION: Yes oriented to person, Yes oriented to place and Yes oriented to time Skin: COMMON NORMALS: no rashes or lesions noted GENERAL SKIN EXAM: no rashes or lesions noted Course Vital Signs: Vital signs: Vital Signs Temperature 97.8 F 11/10/24 14:48 Pulse Rate 65 11/10/24 20:26 Respiratory Rate 16 11/10/24 20:26 Blood Pressure 134/95 11/10/24 20:26 Pulse Oximetry 98 11/10/24 20:26 Oxygen Delivery Me thod Room Air 11/10/24 19:00 MDM - Extremity (Nontraumatic) Medical Decision Making MRI shows central canal stenosis and foraminal stenosis both left and right. Pain is much improved will discharge patient home she has a neurosurgeon she sees in [place] she wishes to take the MRI there we will discharge her home with steroid taper pain medications muscle relaxers and anti-inflammatories. Return if pain is not controlled. Medical Records I reviewed the patient's medical records. Lab Data I reviewed the patient's lab results. 11/10/24 15:30 11/10/24 15:30 Radiology Impressions Cervical Spine CT 11/10/24 14:36 IMPRESSION: No acute findings. Chest X-Ray 11/10/24 14:57 IMPRESSION: Ill-defined haziness in the medial right lung base with possible infiltrate in this region. Cervical Spine MRI 11/10/24 17:05 IMPRESSION: 1. C5-C6 disc extrusion causing mild central stenosis and left lateral recess stenosis. Moderate stenosis of the left neural foramen. 2. C6-C7 disc bulge with right lateral protrusion mildly narrowing the right lateral recess. Laboratory Results WBC 7.28 10^3/uL (3.29-11.43) 11/10/24 15:30 RBC 4.46 10^6/uL (3.85-5.65) 11/10/24 15:30 Hgb 13.50 g/dL (11.27-16.99) 11/10/24 15:30 Hct 38.9 % (36-47) 11/10/24 15:30 MCV 87.2 fl (85-98) 11/10/24 15:30 MCH 30.3 pg (27-33) 11/10/24 15:30 MCHC 34.7 g/dL (30-55) 11/10/24 15:30 RDW 12.5 % (12.1-15.1) 11/10/24 15:30 Plt Count 258 10^3/cmm (157-399) 11/10/24 15:30 MPV 10.4 fL (7.4-10.4) 11/10/24 15:30 Neut % (Auto) 60.8 % 11/10/24 15:30 Lymph % (Auto) 28.8 % 11/10/24 15:30 [place] % (Auto) 6.6 % 11/10/24 15:30 Eos % (Auto) 2.5 % 11/10/24 15:30 Baso % (Auto) 1.0 % 11/10/24 15:30 Neut # (Auto) 4.43 10^3/uL (1.8-7.7) 11/10/24 15:30 Lymph # (Auto) 2.1 10^3/uL (0.8-4.8) 11/10/24 15:30 [place] # (Auto) 0.5 10^3/uL (0.2-0.9) 11/10/24 15:30 Eos # (Auto) 0.2 10^3/uL (0.0-0.8) 11/10/24 15:30 Baso # (Auto) 0.1 10^3/uL (0.0-0.1) 11/10/24 15:30 Nucleated RBC % (auto) 0 % 11/10/24 15:30 Nucleated RBCs # 0.0 /100WBC 11/10/24 15:30 Sodium 134 mmol/L (136-145) L 11/10/24 15:30 Potassium 3.9 mmol/L (3.5-5.1) 11/10/24 15:30 Chloride 98 mmol/L (98-107) 11/10/24 15:30 Carbon Dioxide 25 mmol/L (22-29) 11/10/24 15:30 Anion Gap 14.9 (5-19) 11/10/24 15:30 BUN 12 mg/dL (6-20) 11/10/24 15:30 Creatinine 1.0 mg/dL (0.5-0.9) H 11/10/24 15:30 GFR Calculation 60.5 mL/min (90-130) L 11/10/24 15:30 Glucose 96 mg/dL (65-115) 11/10/24 15:30 Calculated Osmolality 278 mOsm/kg (285-295) L 11/10/24 15:30 Calcium 9.5 mg/dL (8.5-10.5) 11/10/24 15:30 Total Bilirubin 0.4 mg/dL (0.15-1.2) 11/10/24 15:30 AST 14 U/L (0-32) 11/10/24 15:30 ALT 9 U/L (0-33) 11/10/24 15:30 Alkaline Phosphatase 64 U/L (35-105) 11/10/24 15:30 Troponin T Baseline < 6 ng/L (0-10) 11/10/24 15:30 Troponin T 120 Minute 6.00 ng/L (0-10) 11/10/24 18:38 Delta Troponin T 0.53140 ABS# (0-10) 11/10/24 18:38 C-Reactive Protein 3.0 mg/L (0.0-4.9) 11/10/24 15:30 Total Protein 6.7 g/dL (6.6-8.7) 11/10/24 15:30 Albumin 4.5 g/dL (3.5-5.2) 11/10/24 15:30 Globulin 2.2 g/dL (1.3-4.6) 11/10/24 15:30 All radiology interpretation(s) finalized by discharge Discharge Plan Discharge Patient Disposition: Home Clinical Impression: Cervical disc disease, Cervical radiculopathy Condition: Stable Prescriptions: New tizanidine 4 mg tablet 4 mg PO Q6H PRN (Reason: muscle spasticity) Qty: 20 0RF Rx Instructions: do not exceed 3 doses per 24 hrs hydrocodone-acetaminophen 5-325 mg tablet 1 tab PO Q6H PRN (Reason: pain) Qty: 20 0RF prednisone 20 mg tablet 20 mg PO TID Qty: 15 0RF Rx Instructions: 1 p.o. 3 times daily x3 days, 1 p.o. twice daily x2 days, 1 p.o. daily x2 days diclofenac sodium 75 mg tablet,delayed release (DR/EC) 75 mg PO Q12H PRN (Reason: pain) Qty: 20 0RF No Action tizanidine 4 mg capsule 4 mg PO TID PRN (Reason: Spasms) amitriptyline 10 mg tablet 10 mg PO BEDTIME (DME) CPAP Device See Rx Instructions .ROUTE Rx Instructions: As directed Qulipta 60 mg tablet 60 mg PO DAILY sumatriptan succinate 100 mg tablet 100 mg PO Q2H PRN (Reason: Migraine Headache) Rx Instructions: do not exceed 2 doses per 24 hrs ondansetron HCl 8 mg tablet 8 mg PO Q8H PRN (Reason: Nausea) acetaminophen [Tylenol Extra Strength] 500 mg Tablet 1,000 mg PO Q6H PRN (Reason: Pain) Excedrin Migraine 250-250-65 mg Tablet 2 tab PO Q6H PRN (Reason: Migraine Headache) naproxen [Naprosyn] 500 mg tablet 500 mg PO BID PRN (Reason: pain) Qty: 20 0RF diazepam [Valium] 5 mg tablet 5 mg PO BID PRN (Reason: muscle spasm) Qty: 10 0RF hydrocodone-acetaminophen 10-325 mg tablet 1 tab PO BEDTIME Discharge Orders: Discharge ED (Routine); Ordered 11/10/24 Ordered By: Nilton Kessler Referrals: Jacquelyn,Estephania L, DO [Primary Care Provider] - Patient Instructions: Opioid Safety, Pain Management Activity Restrictions/Additional Instructions: Thank you for choosing [facility] for your healthcare needs today. It is very important that you follow up as instructed or that you return to the Emergency Department should you have concerns or if your condition changes or worsens in any way. You were seen today with neck pain with pain radiating to your arms from nerve root irritation. You are given a copy of the MRI which you should share with your neurosurgeon. We discharged home with a steroid taper that you can begin tomorrow as well as with muscle relaxers pain medicines and anti-inflammatories. If pain is uncontrolled return to the nearest emergency room Print Language: Wolof Coding Level of Care Code ED Ornamental Brick Installer for Kathi Canseco
[2024-11-10] MEDS: aspirin 81 mg Chew Tablet 324 MG PO (15:17)
[2024-11-10] MEDS: ketorolac 30 mg/mL INJ IVP (15:23)
[2024-11-10] MEDS: orphenadrine 30 mg/mL Inj 2 mL 60 MG IVP (15:23)
[2024-11-10] MEDS: methylPREDNISolone sod succ 125 mg/2 mL INJ IVP (15:23)
[2024-11-10 15:50] LABS: Basophils # 0.1 10^3/uL (0.0-0.1); Eosinophils # 0.2 10^3/uL (0.0-0.8); Eosinophils % 2.5 %; Hematocrit 38.9 % (36-47); Lymphocytes # 2.1 10^3/uL (0.8-4.8); Lymphocytes % 28.8 %; Mean Corpuscular HGB Conc 34.7 g/dL (30-55); Mean Corpuscular Hemoglobin 30.3 pg (27-33); Mean Corpuscular Volume 87.2 fl (85-98); Mean Platelet Volume 10.4 fL (7.4-10.4); Monocytes # 0.5 10^3/uL (0.2-0.9); Monocytes % 6.6 %; Neutrophils # 4.43 10^3/uL (1.8-7.7); Neutrophils % 60.8 %; Nucleated Red Blood Cells % 0 %; Platelet Count 258 10^3/cmm (157-399); Red Blood Count 4.46 10^6/uL (3.85-5.65); Red Cell Distribution Width 12.5 % (12.1-15.1); White Blood Count 7.28 10^3/uL (3.29-11.43)
[2024-11-10 15:54] LABS: Alanine Aminotransferase 9 U/L (0-33); Albumin Level 4.5 g/dL (3.5-5.2); Alkaline Phosphatase 64 U/L (35-105); Anion Gap 14.9 (5-19); Aspartate Amino Transferase 14 U/L (0-32); Blood Urea Nitrogen 12 mg/dL (6-20); Calcium 9.5 mg/dL (8.5-10.5); Carbon Dioxide 25 mmol/L (22-29); Chloride 98 mmol/L (98-107); Globulin 2.2 g/dL (1.3-4.6); Glomerular Filtration Rate 60.5 mL/min (90-130); Glucose 96 mg/dL (65-115); Osmolality Calculated 278 mOsm/kg (285-295); Potassium 3.9 mmol/L (3.5-5.1); Sodium 134 mmol/L (136-145); Total Bilirubin 0.4 mg/dL (0.15-1.2); Total Protein 6.7 g/dL (6.6-8.7)
[2024-11-10 15:55] LABS: Troponin(5th) Baseline < 6 ng/L (0-10)
[2024-11-10 16:45] VITALS: RESP 16; O2SAT 98
[2024-11-10] MEDS: morphine 4 mg/mL SDV 1 mL IVP (16:45)
[2024-11-10 16:47] VITALS: BP 127/73; PULSE 56; RESP 16; O2SAT 98
--- NOTE | 2024-11-10 16:57 | ECG_ITS ---
[facility] Date: 2024-11[facility]10 Pat Name: Cierra Gilliam Department: Room: Gender: Female Research Project Manager: : 1980 Requested By: Nilton Ellington Order Number: [id number] Reading MD: Measurements Intervals [place] Rate: 62 P: 78 MS: 145 QRS: 89 QRSD: 92 T: 61 QT: 432 QTc: 439 Interpretive Statements SINUS RHYTHM WITH SINUS ARRHYTHMIA [email or web address]
[2024-11-10 17:00] VITALS: BP 127/82; PULSE 59; RESP 18; O2SAT 99
--- NOTE | 2024-11-10 17:05 | MRR_ITS ---
PROCEDURE INFORMATION: Exam: MR Cervical Spine Without Contrast Exam date and time: 11/10/2024 5:52 PM Age: 44 years old Clinical indication: Neck pain and radicular pain (radiculopathy); Cervical region; Additional info: Pain w radiculopathy TECHNIQUE: Imaging protocol: Magnetic resonance imaging of the cervical spine without contrast. COMPARISON: CT cervical spin wo con* [id number] 11/10/2024 4:03 PM FINDINGS: Bones/joints: There is no anterior wedging deformity. No acute fracture is seen. There is slight reversal of the normal cervical lordosis which may be related to patient positioning, muscle spasm or splinting. Spinal cord: The cervical spinal cord is normal in caliber. No definite cord signal abnormality is seen. There is slight flattening of the left ventral cord at the C5-C6 level. C2-C3: No significant disc bulge or herniation. No severe spinal canal stenosis. No significant neural foraminal narrowing. C3-C4: No significant disc bulge or herniation. No severe spinal canal stenosis. No significant neural foraminal narrowing. C4-C5: No significant disc bulge or herniation. No severe spinal canal stenosis. No significant neural foraminal narrowing. C5-C6: Left eccentric disc extrusion migrates a few mm above and below the disc level, causing left lateral recess stenosis and mild stenosis of the central canal. There is tenting the posterior longitudinal ligament. There is moderate stenosis of the left C5-C6 neural foramen. C6-C7: Diffuse disc bulge with right lateral protrusion is mildly narrowing the right lateral recess. C7-T1: No significant disc bulge or herniation. No severe spinal canal stenosis. No significant neural foraminal narrowing. Soft tissues: See Bones/joints finding. Vasculature: Expected flow voids in the vertebral arteries. MR/MR cervical spin wo con* [id number] IMPRESSION: 1. C5-C6 disc extrusion causing mild central stenosis and left lateral recess stenosis. Moderate stenosis of the left neural foramen. 2. C6-C7 disc bulge with right lateral protrusion mildly narrowing the right lateral recess.
[2024-11-10] MEDS: HYDROmorphone 0.5 MG/0.5 ML INJ IVP (17:37)
[2024-11-10 19:00] VITALS: BP 136/87; PULSE 52; RESP 16; O2SAT 99
[2024-11-10 19:12] LABS: Troponin 5 2HR Delta 0.00001 ABS# (0-10)
[2024-11-10 20:26] VITALS: BP 134/95; PULSE 65; RESP 16; O2SAT 98
== END 2024-11-10 20:25 | disposition home or self-care (01) ==
PROVIDERS: Emergency Provider Family Medicine; PCP Family Medicine
DX: M50.122 Cervical disc disorder at C5-C6 level with radiculopathy (principal); F17.210 Nicotine dependence, cigarettes, uncomplicated
CPT/HCPCS: 36415; 71045; 72125; 72141; 80053; 84484; 85025; 86140; 93005; 96374; 96375; 99285; J1171; J1885; J2270; J2360; J2919; J9999

== ENCOUNTER 2025-02-11 09:51 | Outpatient (CLI) | payer BC, SELFPAY ==
--- NOTE | 2025-02-11 10:00 | XR_ITS ---
WS: [email or web address] XR cervical spine 3V* [id number] REASON FOR EXAM: ARTHRODESIS STATUS FINDINGS: Straightening of the normal lordosis of the cervical spine. 2 mm of anterolisthesis of C3 on C4. Anterior plate and screw fixation with interbody fusion devices C5-C7. Surgical appliances are intact and in proper position and alignment. XR/XR cervical spine 3V* [id number] IMPRESSION: Post anterior cervical fusion as above.
== END 2025-02-11 09:52 | disposition home or self-care (01) ==
PROVIDERS: PCP Family Medicine; Visit Provider Nurse Practitioner Family
DX: Z98.1 Arthrodesis status (principal); R93.7 Abnormal findings on diagnostic imaging of other parts of musculoskeletal system
CPT/HCPCS: 72040

== ENCOUNTER 2025-02-26 10:42 | Outpatient (CLI) | payer BC, SELFPAY ==
--- NOTE | 2025-02-26 10:58 | XR_ITS ---
WS: [email or web address] XR thoracic spine 2V [id number] REASON FOR EXAM: THORACIC BACK PAIN FINDINGS: Relatively normal thoracic spine curvatures. No significant vertebral body abnormality. Disc spaces are intact with minimal endplate sclerosis and osteophytosis in the mid thoracic spine. XR/XR thoracic spine 2V [id number] IMPRESSION: Minimal degenerative spondylosis as above.
--- NOTE | 2025-02-26 11:05 | XR_ITS ---
WS: [email or web address] XR lumbar spine 2-3V* [id number] REASON FOR EXAM: LOWER BACK PAIN FINDINGS: Relatively normal lumbar spine curvatures. No significant vertebral body compression deformity or focal lesion. Minimal narrowing of the L4-L5 and L5-S1 disc spaces. Minimal endplate sclerosis and osteophytosis L1-L5. No significant spondylolisthesis. No spondylolysis. XR/XR lumbar spine 2-3V* [id number] IMPRESSION: Mild changes of degenerative spondylosis as above. Progression of disc space na rrowing at L4-L5 and L5-S1 compared to 04/23/2020.
== END 2025-02-26 10:43 | disposition home or self-care (01) ==
PROVIDERS: PCP Family Medicine; Visit Provider Surgery
DX: M54.16 Radiculopathy, lumbar region (principal)
CPT/HCPCS: 72070; 72100